=== PATIENT | female | born 1965 | race Caucasian/White ===

== ENCOUNTER 2020-02-21 14:05 | Emergency (ER) | payer OTHER, MEDICAID, SELFPAY ==
[2020-02-21] VITALS (9 sets, daily range): BP systolic 139–197; BP diastolic 72–94; PULSE 70–85; RESP 12–18; TEMP 36.9; O2SAT 94–99; BMI 30.9
--- NOTE | 2020-02-21 15:58 | DI.US.S_ITS ---
PROCEDURE: US ABDOMEN LIMITED INDICATIONS: RUQ PAIN TECHNIQUE: Real-time scanning was performed of the abdominal and retroperitoneal organs, with image documentation. COMPARISON: [facility], CT, ABDOMEN/PELVIS WITH CONTRAST, 12/06/2012, 22:55. FINDINGS: Liver: There is diffusely increased echogenicity throughout the liver with attenuation of the deeper structures. Gallbladder: The gallbladder appears normal without gallstones. Gallbladder wall is normal in thickness. Biliary ducts: Intrahepatic bile ducts are non-dilated. Extrahepatic bile duct caliber measures 6 mm. Normal is 6-7 mm or less in diameter, or 10 mm or less post-cholecystectomy. Pancreas: Visualized portions of the pancreas are sonographically normal. IMPRESSION: Increased hepatic echogenicity noted possibly related to hepatic steatosis but other sources of hepatocellular disease cannot be excluded. Recommend clinical correlation. No sonographic signs of cholelithiasis or acute cholecystitis. Dictated by: Saw Early M.D. on 02/21/2020 at 16:34 Approved by: Saw Early M.D. on 02/21/2020 at 16:36
--- NOTE | 2020-02-21 15:58 | DI.RAD.S_ITS ---
PROCEDURE: XR ACUTE ABDOMEN SERIES INDICATIONS: abd pain TECHNIQUE: One view chest and two views of the abdomen were acquired. COMPARISON: None. FINDINGS: Surgical changes and devices: None. Chest: Lungs are clear. Heart size is normal. No pleural effusions. No pneumoperitoneum. Abdomen: Bowel gas pattern is normal. No suspicious calcifications. Visualized solid organ contours appear normal. Bones: No suspicious bony lesions. IMPRESSION: Nonspecific bowel gas pattern, no sign of intestinal obstruction or perforation. No lung base pneumonia found. Dictated by: Oskar Payton M.D. on 02/21/2020 at 16:27 Approved by: Oskar Payton M.D. on 02/21/2020 at 16:28
[2020-02-21 17:19] LABS: Add Manual Diff / Slide Review NO; Basophils Absolute Auto 100 /uL (0-100); Basophils Percent Auto 0.8 % (0-2); Eosinophils Absolute Auto 100 /uL (0-450); Eosinophils Percent Auto 1.1 % (2-4); Hematocrit 42.2 % (36-46); Hemoglobin 14.3 g/dL (12.0-16.0); Lymphocytes Absolute Auto 2900 /uL (1100-4500); Lymphocytes Percent Auto 35.3 % (25-40); Mean Corpuscular Hemoglobin 29.8 PG (26-34); Mean Corpuscular Volume 87.9 fL (80-100); Monocytes Absolute Auto 400 /uL (0-900); Monocytes Percent Auto 4.7 % (3-14); Neutrophils Absolute Auto 4800 /uL (1500-7000); Neutrophils Percent Auto 58.1 % (50-75); Platelet Count 348 X10^3/uL (150-400); Red Blood Cell Count 4.81 X10^6/uL (4.0-5.2); Red Cell Distribution Width 12.5 % (11.6-14.8); White Blood Cell Count 8.2 X10^3/uL (4.5-11.0)
[2020-02-21] MEDS: PANTOPRAZOLE 40 MG VIAL IV (17:23)
[2020-02-21] MEDS: ONDANSETRON 4 MG/2 ML INJ IV (17:23)
[2020-02-21 17:30] LABS: Prothrombin Time 11.9 SECONDS (10.1-12.7)
[2020-02-21 17:32] LABS: Alanine Aminotransferase 97 IU/L (<35); Albumin 4.9 g/dL (3.5-5.0); Albumin Globulin Ratio 1.4 (1.0-2.8); Alkaline Phosphatase 98 U/L (38-126); Amylase 96 U/L (30-110); Aspartate Aminotransferase 48 IU/L (14-36); BUN Creatinine Ratio 20.6 (6-22); Bilirubin Total 0.6 mg/dL (0.2-1.3); Blood Urea Nitrogen 13 mg/dL (7-17); Calcium 9.4 mg/dL (8.4-10.2); Carbon Dioxide 25 mmol/L (22-32); Chloride 104 mmol/L (98-107); Creatine Kinase 48 U/L (30-135); Estimated Glomerular Filt Rate > 60.0 mL/min (>60); Globulin 3.4 g/dL (1.7-4.1); Glucose 97 mg/dL (70-100); HEMOLYSIS < 15 (0-50); Lipase 86 U/L (23-300); PTT Partial Thromboplastin Tim 35 SECONDS (26.4-36.2); Sodium 138 mmol/L (137-145); Total Protein 8.3 g/dL (6.3-8.2)
[2020-02-21 17:44] LABS: Troponin I < 0.012 ng/mL (0.01-0.034)
[2020-02-21] MEDS: MAG HYDROX/ALUMINUM/SIMETH SUS 20 ML, LIDOCAINE VISCOUS 2% 15 ML PO (17:47)
--- NOTE | 2020-02-21 19:29 | ED_ITS ---
HPI - Abdominal Pain <RAFIA Rust - Last Filed: 02/21/20 19:35> General Chief Complaint: Abdominal Pain Stated Complaint: upper abdominal burning,changes Time Seen by Provider: 02/21/20 15:15 Source: patient Mode of arrival: Ambulatory Limitations: no limitations History of Present Illness HPI narrative: The patient is a 55-year-old female nonsmoker with history of abdominal pain who presents with a chief complaint of epigastric abdominal pain. She states it she feels like it is burning, is been going off and on for the past several months. She has seen formerly [facility] prior, had a colonoscopy a few weeks ago. She states she is scheduled for an EGD in 2 weeks. She denies t aking any medications for this. She denies any fevers. She denies any nausea or vomiting. She does note loose stools, but states she has a history there of. She states the pain is nonradiating, no specific alleviating or exacerbating factors, though it is noted that her pain comes and goes. It is sporadic. She denies any chest pain or shortness of breath. The patient states it stays in her epigastric area. She denies any exposure to known coronavirus patients. She does note that she used to be an alcoholic, is known to have some elevated LFTs. She states she is not drinking at this point time. She went to [place] today, states she was there for 3 hours but did not see anybody or leave the waiting room so she left and came here. Related Data Home Medications Medication Instructions Recorded Confirmed CRANBERRY EXTRACT (Cranberry) 405 mg PO PRN #0 11/30/12 02/21/20 [PHYTOESTROGEN CREAM] BID #0 11/30/12 Previous Rx's Medication Instructions Recorded pantoprazole [Protonix] 40 mg PO DAILY #20 tab 02/21/20 Allergies Allergy/AdvReac Type Severity Reaction Status Date / Time MORPHINE Allergy Unknown ITCHING Uncoded 02/21/20 14:31 Review of Systems <RAFIA Rust - Last Filed: 02/21/20 19:35> Review of Systems Narrative: GENERAL: Denies chills, fatigue, malaise, fever, sweats. HEENT: Denies sinus pain, ear pain, sore throat, difficulty swallowing, dizziness. RESPIRATORY: Denies dyspnea, cough, wheezing, hemoptysis, sputum. CARDIOVASCULAR: Denies chest pain, palpitations, orthopnea, edema, GASTROINTESTINAL: See HPI : Denies dysuria, frequency, incontinence, hematuria, urinary retention. MUSCULOSKELETAL: denies weakness, joint pain, or bony pain SKIN: Denies rash, skin lesions, or other NEUROLOGIC: Denies weakness, headache, numbness, change in speech, confusion, seizures, incoordination. PSYCHIATRIC: No concerning psychosocial issues. 12 point review of systems is negative except for those stated above Patient History <CARMEN Rust - Last Filed: 02/21/20 19:35> Social History Smoking Status: Never smoker Smoking Status: Never smoker Substance Use Type: marijuana Exam <CARMEN Rust - Last Filed: 02/21/20 19:35> Narrative Exam Narrative: GENERAL: This is a well-nourished, well-developed patient, in no acute distress HEAD: Atraumatic. Normocephalic. No temporal or scalp tenderness. EYES: Pupils equal round and reactive. Extraocular motions intact. No scleral icterus. No injection or drainage. ENT: Nose without bleeding, purulent drainage or septal hematoma. Throat without erythema, tonsillar hypertrophy or exudate. Uvula midline. Airway patent. NECK: Trachea midline. No JVD or lymphadenopathy. Supple, nontender, no meningeal signs. CARDIOVASCULAR: Regular rate and rhythm RESPIRATORY: Clear to auscultation. Breath sounds equal bilaterally. No wheezes, rales, or rhonchi. GASTROINTESTINAL: Abdomen soft, diffusely tender to palpation, nondistended. No hepato-splenomegaly, or palpable masses. No guarding. Active bowel sounds all 4 quadrants. EXTREMITIES: No clubbing, cyanosis, or edema. No joint tenderness, effusion, or edema noted. BACK: Nontender without deformity or crepitance. No flank tenderness. NEURO: AOx3. SKIN: No rash or erythema on visible skin Initial Vital Signs Initial Vital Signs: Vital Signs Temperature 98.5 F 02/21/20 14:24 Pulse Rate 85 02/21/20 14:24 Respiratory Rate 16 02/21/20 14:24 Blood Pressure 182/82 H 02/21/20 14:24 Pulse Oximetry 95 02/21/20 14:24 <Aldo Hernandez MD - Last Filed: 02/27/20 08:21> Initial Vital Signs Initial Vital Signs: Vital Signs Temperature 98.5 F 02/21/20 14:24 Pulse Rate 85 02/21/20 14:24 Respiratory Rate 16 02/21/20 14:24 Blood Pressure 182/82 H 02/21/20 14:24 Pulse Oximetry 95 02/21/20 14:24 Scores <RAFIA Rust - Last Filed: 02/21/20 19:35> GCS Oswald coma scale eye opening: Spontaneous Herald coma scale verbal response: Orientated Oswald coma scale motor response: Obey commands Oswald coma scale total score: 15 Course <RAFIA Rust - Last Filed: 02/21/20 19:35> Orders Ordered: Discontinued Medications Al Hydrox/Mg Hydrox/Simethicone 20 ml/ Lidocaine HCl 15 ml 0 ml PO NOW ONE Stop: 02/21/20 17:40 Last Admin: 02/21/20 17:47 Dose: 35 ml Documented by: JABIER Ondansetron HCl (Zofran) 4 mg IV NOW ONE Stop: 02/21/20 15:59 Last Admin: 02/21/20 17:23 Dose: 4 mg Documented by: JABIER Pantoprazole Sodium (Protonix) 40 mg IV NOW ONE Stop: 02/21/20 15:59 Last Admin: 02/21/20 17:23 Dose: 40 mg Documented by: JABIER Vital Signs Vital signs: Vital Signs - 8 hr 02/21/20 14:24 02/21/20 16:54 02/21/20 16:56 Temperature 98.5 F Pulse Rate 85 71 77 Respiratory Rate 16 16 18 Blood Pressure 182/82 H 197/77 H Pulse Oximetry 95 97 96 02/21/20 17:00 02/21/20 17:01 02/21/20 17:30 Temperature Pulse Rate 78 77 76 Respiratory Rate 12 18 14 Blood Pressure 155/76 H 150/72 H Pulse Oximetry 97 96 94 02/21/20 18:00 02/21/20 18:01 02/21/20 19:15 Temperature Pulse Rate 73 72 70 Respiratory Rate 17 17 14 Blood Pressure 139/94 H 144/77 H Pulse Oximetry 97 96 99 <Aldo Hernandez MD - Last Filed: 02/27/20 08:21> Orders Ordered: Discontinued Medications Al Hydrox/Mg Hydrox/Simethicone 20 ml/ Lidocaine HCl 15 ml 0 ml PO NOW ONE Stop: 02/21/20 17:40 Last Admin: 02/21/20 17:47 Dose: 35 ml Documented by: JABIER Ondansetron HCl (Zofran) 4 mg IV NOW ONE Stop: 02/21/20 15:59 Last Admin: 02/21/20 17:23 Dose: 4 mg Documented by: JABIER Pantoprazole Sodium (Protonix) 40 mg IV NOW ONE Stop: 02/21/20 15:59 Last Admin: 02/21/20 17:23 Dose: 40 mg Documented by: JABIER Vital Signs Vital signs: Vital Signs - 8 hr 02/21/20 14:24 02/21/20 16:54 02/21/20 16:56 Temperature 98.5 F Pulse Rate 85 71 77 Respiratory Rate 16 16 18 Blood Pressure 182/82 H 197/77 H Pulse Oximetry 95 97 96 02/21/20 17:00 02/21/20 17:01 02/21/20 17:30 Temperature Pulse Rate 78 77 76 Respiratory Rate 12 18 14 Blood Pressure 155/76 H 150/72 H Pulse Oximetry 97 96 94 02/21/20 18:00 02/21/20 18:01 02/21/20 19:15 Temperature Pulse Rate 73 72 70 Respiratory Rate 17 17 14 Blood Pressure 139/94 H 144/77 H Pulse Oximetry 97 96 99 MDM - Abdominal Pain <BARRINGTON Rust-BC - Last Filed: 02/21/20 19:35> Lab Data Result diagrams: 02/21/20 17:05 02/21/20 17:05 Labs: Lab Results 02/21/20 02/21/20 02/21/20 Range/Units 17:05 17:05 17:05 WBC 8.2 (4.5-11.0) X10^3/uL RBC 4.81 (4.0-5.2) X10^6/uL Hgb 14.3 (12.0-16.0) g/dL Hct 42.2 (36-46) % MCV 87.9 (80-100) fL MCH 29.8 (26-34) PG MCHC 34.0 (30-36) % RDW 12.5 (11.6-14.8) % Plt Count 348 (150-400) X10^3/uL Neut % (Auto) 58.1 (50-75) % Lymph % (Auto) 35.3 (25-40) % Mcintosh % (Auto) 4.7 (3-14) % Eos % (Auto) 1.1 L (2-4) % Baso % (Auto) 0.8 (0-2) % Neut # (Auto) 4800 (2581-8407) /uL Lymph # (Auto) 2900 (9116-6044) /uL Mcintosh # (Auto) 400 (0-900) /uL Eos # (Auto) 100 (0-450) /uL Baso # (Auto) 100 (0-100) /uL PT 11.9 (10.1-12.7) SECONDS INR 1.0 (0.9-1.3) APTT 35 (26.4-36.2) SECONDS Sodium 138 (137-145) mmol/L Potassium 4.0 (3.4-5.1) mmol/L Chloride 104 (98-107) mmol/L Carbon Dioxide 25 (22-32) mmol/L BUN 13 (7-17) mg/dL Creatinine 0.63 (0.52-1.04) mg/dL Estimated GFR > 60.0 (>60) mL/min BUN/Creatinine Ratio 20.6 (6-22) Glucose 97 (70-100) mg/dL Calcium 9.4 (8.4-10.2) mg/dL Total Bilirubin 0.6 (0.2-1.3) mg/dL AST 48 H (14-36) IU/L ALT 97 H (<35) IU/L Alkaline Phosphatase 98 (38-126) U/L Total Creatine Kinase (30-135) U/L CK-MB (CK-2) CK-MB (CK-2) Rel Index Troponin I (0.01-0.034) ng/mL Total Protein 8.3 H (6.3-8.2) g/dL Albumin 4.9 (3.5-5.0) g/dL Globulin 3.4 (1.7-4.1) g/dL Albumin/Globulin Ratio 1.4 (1.0-2.8) Amylase 96 (30-110) U/L Lipase 86 (23-300) U/L 08/14/20 Range/Units 17:05 WBC (4.5-11.0) X10^3/uL RBC (4.0-5.2) X10^6/uL Hgb (12.0-16.0) g/dL Hct (36-46) % MCV (80-100) fL MCH (26-34) PG MCHC (30-36) % RDW (11.6-14.8) % Plt Count (150-400) X10^3/uL Neut % (Auto) (50-75) % Lymph % (Auto) (25-40) % Mcintosh % (Auto) (3-14) % Eos % (Auto) (2-4) % Baso % (Auto) (0-2) % Neut # (Auto) (0049-7920) /uL Lymph # (Auto) (3134-8123) /uL Mcintosh # (Auto) (0-900) /uL Eos # (Auto) (0-450) /uL Baso # (Auto) (0-100) /uL PT (10.1-12.7) SECONDS INR (0.9-1.3) APTT (26.4-36.2) SECONDS Sodium (137-145) mmol/L Potassium (3.4-5.1) mmol/L Chloride (98-107) mmol/L Carbon Dioxide (22-32) mmol/L BUN (7-17) mg/dL Creatinine (0.52-1.04) mg/dL Estimated GFR (>60) mL/min BUN/Creatinine Ratio (6-22) Glucose (70-100) mg/dL Calcium (8.4-10.2) mg/dL Total Bilirubin (0.2-1.3) mg/dL AST (14-36) IU/L ALT (<35) IU/L Alkaline Phosphatase (38-126) U/L Total Creatine Kinase 48 (30-135) U/L CK-MB (CK-2) TNP CK-MB (CK-2) Rel Index TNP Troponin I < 0.012 (0.01-0.034) ng/mL Total Protein (6.3-8.2) g/dL Albumin (3.5-5.0) g/dL Globulin (1.7-4.1) g/dL Albumin/Globulin Ratio (1.0-2.8) Amylase (30-110) U/L Lipase (23-300) U/L Point of care testing: Urine Dip Bedside Urine Glucose Negative Bedside Urine Bilirubin - Negative Bedside Urine Ketone +/- 5 Urine Specific [place] 1.030 Bedside Urine Occult Blood - Negative Bedside Urine pH 5.5 Bedside Urine Protein - Negative Bedside Urine Urobilinogen - Negative Bedside Urine Nitrite - Negative Bedside Urine Leukocytes - Negative Esterase Imaging Data Chest x-ray: Radiologist's Impression: [address] [address] XRay Report Signed Patient: Liudmila Green [facility]#: [id number] : 1965Acct:[id number] Age/Sex: 55 / FDate of Service: 02/21/20 Loc: ED Accession Number: [id number] Procedure: XR acute abdomen series Ordering Provider: Teresa Alejandra PROCEDURE: XR ACUTE ABDOMEN SERIES INDICATIONS: abd pain TECHNIQUE: One view chest and two views of the abdomen were acquired. COMPARISON: None. FINDINGS: Surgical changes and devices: None. Chest: Lungs are clear. Heart size is normal. No pleural effusions. No pneumoperitoneum. Abdomen: Bowel gas pattern is normal. No suspicious calcifications. Visualized solid organ contours appear normal. Bones: No suspicious bony lesions. IMPRESSION: Nonspecific bowel gas pattern, no sign of intestinal obstruction or perforation. No lung base pneumonia found. Dictated by: Oskar Payton M.D. on 02/21/2020 at 16:27 Approved by: Oskar Payton M.D. on 02/21/2020 at 16:28 US - abdomen: Radiologist's Impression: [address] [address] Ultrasound Report Signed Patient: Liudmila Green [facility]#: [id number] : 1965Acct:[id number] Age/Sex: 55 / FDate of Service: 02/21/20 Loc: ED Accession Number: [id number] Procedure: US abdomen limited Ordering Provider: Teresa Aljeandra PROCEDURE: US ABDOMEN LIMITED INDICATIONS: RUQ PAIN TECHNIQUE: Real-time scanning was performed of the abdominal and retroperitoneal organs, with image documentation. COMPARISON: [facility], CT, ABDOMEN/PELVIS WITH CONTRAST, 12/06/2012, 22:55. FINDINGS: Liver: There is diffusely increased echogenicity throughout the liver with attenuation of the deeper structures. Gallbladder: The gallbladder appears normal without gallstones. Gallbladder wall is normal in thickness. Biliary ducts: Intrahepatic bile ducts are non-dilated. Extrahepatic bile duct caliber measures 6 mm. Normal is 6-7 mm or less in diameter, or 10 mm or less post-cholecystectomy. Pancreas: Visualized portions of the pancreas are sonographically normal. IMPRESSION: Increased hepatic echogenicity noted possibly related to hepatic steatosis but other sources of hepatocellular disease cannot be excluded. Recommend clinical correlation. No sonographic signs of cholelithiasis or acute cholecystitis. Dictated by: Saw Early M.D. on 02/21/2020 at 16:34 Approved by: Saw Early M.D. on 02/21/2020 at 16:36 ECG Data Attestation: I personally reviewed and interpreted this ECG as follows: Interpretation: Sinus rhythm. Ventricular rate 79. P.r. interval 160. QRS 78. viewed by Dr Hernandez MDM Narrative Medical decision making narrative: The patient is a 55-year-old female who presents with a chief complaint of abdominal pain that has been ongoing for the past several weeks to months. EKG has no acute findings, troponin is negative helping rule out any acute cardiac disease related to her epigastric pain. Patient does have pain to right upper quadrant palpation, so did obtain an ultrasound to rule out any acute cholecystitis. Otherwise her labs are very reassuring, no leukocytosis, no fever, no vomiting help to rule out acute appen dicitis. The patient does feel improved after the above-stated therapies, particularly the Protonix. I did discuss at length reduce acid, fat in her diet, voiding acidic foods deep fried fatty foods etcetera. Did place the patient on daily Protonix at this point time. Encouraged to follow up with primary care provider as well as her GI provider. I do feel as though she would benefit from the scope that is scheduled. Patient has no questions or concerns upon discharge and states understanding return precautions as well as follow-up care. She has been afebrile, in no apparent distress on her cell phone throughout her stay in the emergency department. <Aldo Hernandez MD - Last Filed: 02/27/20 08:21> Lab Data Labs: Lab Results 02/21/20 02/21/20 02/21/20 Range/Units 17:05 17:05 17:05 WBC 8.2 (4.5-11.0) X10^3/uL RBC 4.81 (4.0-5.2) X10^6/uL Hgb 14.3 (12.0-16.0) g/dL Hct 42.2 (36-46) % MCV 87.9 (80-100) fL MCH 29.8 (26-34) PG MCHC 34.0 (30-36) % RDW 12.5 (11.6-14.8) % Plt Count 348 (150-400) X10^3/uL Neut % (Auto) 58.1 (50-75) % Lymph % (Auto) 35.3 (25-40) % Mcintosh % (Auto) 4.7 (3-14) % Eos % (Auto) 1.1 L (2-4) % Baso % (Auto) 0.8 (0-2) % Neut # (Auto) 4800 (3238-9690) /uL Lymph # (Auto) 2900 (8753-3570) /uL Mcintosh # (Auto) 400 (0-900) /uL Eos # (Auto) 100 (0-450) /uL Baso # (Auto) 100 (0-100) /uL PT 11.9 (10.1-12.7) SECONDS INR 1.0 (0.9-1.3) APTT 35 (26.4-36.2) SECONDS Sodium 138 (137-145) mmol/L Potassium 4.0 (3.4-5.1) mmol/L Chloride 104 (98-107) mmol/L Carbon Dioxide 25 (22-32) mmol/L BUN 13 (7-17) mg/dL Creatinine 0.63 (0.52-1.04) mg/dL Estimated GFR > 60.0 (>60) mL/min BUN/Creatinine Ratio 20.6 (6-22) Glucose 97 (70-100) mg/dL Calcium 9.4 (8.4-10.2) mg/dL Total Bilirubin 0.6 (0.2-1.3) mg/dL AST 48 H (14-36) IU/L ALT 97 H (<35) IU/L Alkaline Phosphatase 98 (38-126) U/L Total Creatine Kinase (30-135) U/L CK-MB (CK-2) CK-MB (CK-2) Rel Index Troponin I (0.01-0.034) ng/mL Total Protein 8.3 H (6.3-8.2) g/dL Albumin 4.9 (3.5-5.0) g/dL Globulin 3.4 (1.7-4.1) g/dL Albumin/Globulin Ratio 1.4 (1.0-2.8) Amylase 96 (30-110) U/L Lipase 86 (23-300) U/L 02/21/20 Range/Units 17:05 WBC (4.5-11.0) X10^3/uL RBC (4.0-5.2) X10^6/uL Hgb (12.0-16.0) g/dL Hct (36-46) % MCV (80-100) fL MCH (26-34) PG MCHC (30-36) % RDW (11.6-14.8) % Plt Count (150-400) X10^3/uL Neut % (Auto) (50-75) % Lymph % (Auto) (25-40) % Mcintosh % (Auto) (3-14) % Eos % (Auto) (2-4) % Baso % (Auto) (0-2) % Neut # (Auto) (4774-6915) /uL Lymph # (Auto) (3948-8000) /uL Mcintosh # (Auto) (0-900) /uL Eos # (Auto) (0-450) /uL Baso # (Auto) (0-100) /uL PT (10.1-12.7) SECONDS INR (0.9-1.3) APTT (26.4-36.2) SECONDS Sodium (137-145) mmol/L Potassium (3.4-5.1) mmol/L Chloride (98-107) mmol/L Carbon Dioxide (22-32) mmol/L BUN (7-17) mg/dL Creatinine (0.52-1.04) mg/dL Estimated GFR (>60) mL/min BUN/Creatinine Ratio (6-22) Glucose (70-100) mg/dL Calcium (8.4-10.2) mg/dL Total Bilirubin (0.2-1.3) mg/dL AST (14-36) IU/L ALT (<35) IU/L Alkaline Phosphatase (38-126) U/L Total Creatine Kinase 48 (30-135) U/L CK-MB (CK-2) TNP CK-MB (CK-2) Rel Index TNP Troponin I < 0.012 (0.01-0.034) ng/mL Total Protein (6.3-8.2) g/dL Albumin (3.5-5.0) g/dL Globulin (1.7-4.1) g/dL Albumin/Globulin Ratio (1.0-2.8) Amylase (30-110) U/L Lipase (23-300) U/L Point of care testing: Urine Dip Bedside Urine Glucose Negative Bedside Urine Bilirubin - Negative Bedside Urine Ketone +/- 5 Urine Specific [place] 1.030 Bedside Urine Occult Blood - Negative Bedside Urine pH 5.5 Bedside Urine Protein - Negative Bedside Urine Urobilinogen - Negative Bedside Urine Nitrite - Negative Bedside Urine Leukocytes - Negative Esterase Discharge Plan Departure Patient Disposition: Home Clinical Impression: Abdominal pain Qualifiers: Abdominal location: epigastric Qualified Code(s): R10.13 - Epigastric pain Discharge Date/Time: 02/21/20 19:20 Instructions: DI for Abdominal Pain-Adult, GERD Diet Activity Restrictions/Additional Instructions: Thank you for trusting us with your care today. Your imaging and labs came back grossly normal. I sent a prescription of Protonix to [facility] in [facility] in [place]. Please be sure to eat a low acid diet, avoid spicy foods, deep fried fatty foods acidic foods etcetera Please follow-up with primary care provider. I have given you contact information the [facility] [employer] resource [employer]. They can help you identify a PCP. 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 Please come back to emergency department for any acute concerns such as chest pain, shortness of breath, inability keep down food or fluids etcetera Prescriptions: New pantoprazole [Protonix] 40 mg tablet,delayed release (DR/EC) 40 mg PO DAILY Qty: 20 RF: 0 No Action CRANBERRY EXTRACT (Cranberry) 405 mg PO PRN Qty: 0 RF: 0 [PHYTOESTROGEN CREAM] BID Qty: 0 RF: 0 Referrals: [facility] [Outside] Aldo Todd MD [Primary Care Provider] -
== END 2020-02-21 19:20 | disposition home or self-care (01) ==
PROVIDERS: Emergency Provider Nurse Practitioner Family; PCP Specialist
DX: R10.13 Epigastric pain (principal)
CPT/HCPCS: 36415; 74022; 76705; 80053; 81003; 82150; 82550; 83690; 84484; 85025; 85610; 85730; 93005; 96374; 96375; 99284; C9113; J2405

== ENCOUNTER 2020-09-10 18:53 | Emergency (ER) | payer OTHER, MEDICAID, SELFPAY ==
--- NOTE | 2020-09-10 18:57 | ED.GENADULT ---
HPI - General Adult General Chief complaint: Urogenital-Female Stated complaint: states urinary infection going to kidneys Time Seen by Provider: 09/10/20 18:57 History of Present Illness HPI narrative: 55-year-old woman with a history of reflux and recurrent urinary tract infections presents with increasing suprapubic left lower quadrant and epigastric pain. Symptoms started approximately a week and half ago, she was seen at [facility] and diagnosed with a urinary tract infection treated with Cipro. She feels that she got a little bit better but did not completely resolve. Two days ago she had an upper endoscopy that had been previously scheduled to further evaluate her reflux. She has not heard any specific findings are follow-up regarding that. She notes that today she is having increasing left lower quadrant pain, chills general malaise and over the last few hours increasing dysuria and frequency. She describes no vaginal discharge. She notes that she has not been sexually active for a number of years and is not concerned with ST eyes. She describes no specific fevers, chest pain, cough, vomiting. She notes that she did have a small amount of nonbloody diarrhea today. No orthopnea and no exertional dyspnea. Related Data Home Medications Medication Instructions Recorded Confirmed CRANBERRY EXTRACT (Cranberry) 405 mg PO PRN #0 11/30/12 02/21/20 [PHYTOESTROGEN CREAM] BID #0 11/30/12 Previous Rx's Medication Instructions Recorded pantoprazole [Protonix] 40 mg PO DAILY #20 tab 02/21/20 cephalexin 500 mg PO TID #15 cap 09/10/20 Allergies Allergy/AdvReac Type Severity Reaction Status Date / Time MORPHINE Allergy Unknown ITCHING Uncoded 02/21/20 14:31 Review of Systems Review of Systems ROS Unobtainable: All systems reviewed & are unremarkable except as noted in HPI and below Patient History Medical History (Updated 09/10/20 @ 20:31 by Alysha Mata MD) Acid reflux Alcohol use disorder Recurrent UTI Surgical History (Updated 09/10/20 @ 20:12 by Alysha Mata MD) H/O: hysterectomy Social History Smoking Status: Never smoker Smoking Status: Never smoker Substance Use Type: marijuana Exam Narrative Exam Narrative: General: Healthy appearing, in no acute distress. Able to give a complete and coherent history. Well-nourished well-developed HEENT: Moist mucous membranes, normal sclera with reactive pupils, Neck: supple. 1 cm irregular lesion with slight irritation no right lower neck consistent with likely squamous cell carcinoma Respiratory: Lungs are clear to auscultation, no wheezing no rales no rhonchi. Full and symmetrical air movement Cardiac: Regular rate and rhythm no murmurs no bruits Abdomen: Soft, slight tenderness in the epigastrium radiating to the upper quadrants with significant tenderness in the left lower quadrant mild tenderness over the suprapubic area. No flank pain. Good bowel tones, no rebound or guarding. Skin: Warm and dry, no rashes Neurologic: Grossly neurologically intact with no obvious asymmetries or abnormalities Extremities: No trauma, well perfused Psych: Cooperative, appropriate insight and affect Initial Vital Signs Initial Vital Signs: Vital Signs Temperature 98.4 F 09/10/20 19:00 Pulse Rate 84 09/10/20 19:00 Respiratory Rate 18 09/10/20 19:00 Blood Pressure 186/97 H 09/10/20 19:00 Pulse Oximetry 95 09/10/20 19:00 Course Orders Ordered: ED Orders 09/10/20 19:05 Urine Culture Stat Urine Microscopic Stat 09/10/20 19:40 Complete Blood Count AUTO DIFF Stat Comprehensive Metabolic Panel Stat Lipase Stat Discontinued Medications Sodium Chloride (Normal Saline 0.9%) 1,000 mls @ 1,000 mls/hr IV BOLUS ONE Stop: 09/10/20 20:21 Last Infusion: 09/10/20 21:00 Dose: 0 mls/hr Documented by: Admin: 09/10/20 19:41 Dose: 1,000 mls/hr Documented by: AMADOR Ceftriaxone Sodium/Dextrose (Rocephin) 1 gm in 50 mls @ 100 mls/hr IV NOW ONE Stop: 09/10/20 20:53 Last Infusion: 09/10/20 21:10 Dose: 0 mls/hr Documented by: Admin: 09/10/20 20:31 Dose: 100 mls/hr Documented by: AMADOR Ketorolac Tromethamine (Ketorolac 60 Mg/2 Ml Vial) 15 mg IV NOW ONE Stop: 09/10/20 19:23 Last Admin: 09/10/20 19:42 Dose: 15 mg Documented by: AMADOR Vital Signs Vital signs: Vital Signs - 8 hr 09/10/20 19:00 09/10/20 21:12 Temperature 98.4 F 98.1 F Pulse Rate 84 72 Respiratory Rate 18 18 Blood Pressure 186/97 H 162/78 H Pulse Oximetry 95 97 Medical Decision Making Lab Data Lab results reviewed: Yes I reviewed the patient's lab results. Lab results narrative: Labs from [facility] indicate a UTI with E coli sensitive to multiple antibiotics including capsule, ceftriaxone, Cipro, nitrofurantoin -resistant to Bactrim, ampicillin and intermediately sensitive to amp/sulbactam. Result diagrams: 09/10/20 19:40 09/10/20 19:40 Labs: Lab Results 09/10/20 09/10/20 09/10/20 Range/Units 19:05 19:40 19:40 WBC 7.9 (4.5-11.0) X10^3/uL RBC 4.56 (4.0-5.2) X10^6/uL Hgb 13.6 (12.0-16.0) g/dL Hct 39.9 (36-46) % MCV 87.5 (80-100) fL MCH 29.8 (26-34) PG MCHC 34.1 (30-36) % RDW 12.6 (11.6-14.8) % Plt Count 305 (150-400) X10^3/uL Neut % (Auto) 47.3 L (50-75) % Lymph % (Auto) 42.4 H (25-40) % [place] % (Auto) 6.6 (3-14) % Eos % (Auto) 3.0 (2-4) % Baso % (Auto) 0.7 (0-2) % Neut # (Auto) 3700 (1853-2905) /uL Lymph # (Auto) 3400 (0293-0238) /uL [place] # (Auto) 500 (0-900) /uL Eos # (Auto) 200 (0-450) /uL Baso # (Auto) 100 (0-100) /uL Sodium 137 (137-145) mmol/L Potassium 3.9 (3.4-5.1) mmol/L Chloride 104 (98-107) mmol/L Carbon Dioxide 29 (22-32) mmol/L BUN 14 (7-17) mg/dL Creatinine 0.62 (0.52-1.04) mg/dL Estimated GFR > 60.0 (>60) mL/min BUN/Creatinine Ratio 22.6 H (6-22) Glucose 101 H (70-100) mg/dL Calcium 9.4 (8.4-10.2) mg/dL Total Bilirubin 0.4 (0.2-1.3) mg/dL AST 88 H (14-36) IU/L ALT 129 H (<35) IU/L Alkaline Phosphatase 88 (38-126) U/L Total Protein 7.7 (6.3-8.2) g/dL Albumin 4.6 (3.5-5.0) g/dL Globulin 3.1 (1.7-4.1) g/dL Albumin/Globulin Ratio 1.5 (1.0-2.8) Lipase 100 (23-300) U/L Urine RBC None seen (0-5/HPF) Urine WBC 5-10/hpf H (0-5/HPF) Ur Squamous Epith Cells 0-1 /hpf (0-5/HPF) Urine Bacteria Occasional (0-1) (None) Ur Culture Indicated? Specimen cultured Urine Dip Bedside Urine Glucose Negative Bedside Urine Bilirubin - Negative Bedside Urine Ketone - Negative Urine Specific [place] 1.010 Bedside Urine Occult Blood - Negative Bedside Urine pH 6.0 Bedside Urine Protein - Negative Bedside Urine Urobilinogen - Negative Bedside Urine Nitrite - Negative Bedside Urine Leukocytes +/- 15 Esterase Point of care testing: Urine Dip Bedside Urine Glucose Negative Bedside Urine Bilirubin - Negative Bedside Urine Ketone - Negative Urine Specific [place] 1.010 Bedside Urine Occult Blood - Negative Bedside Urine pH 6.0 Bedside Urine Protein - Negative Bedside Urine Urobilinogen - Negative Bedside Urine Nitrite - Negative Bedside Urine Leukocytes +/- 15 Esterase [facility] Narrative Medical decision making narrative: 55-year-old woman with mild abdominal discomfort increasing dysuria and some developing left flank pain. No fevers. Labs do not indicate any evidence of sepsis. She was seen August 11 at [facility] for similar complaints within normal workup and CT scan at that time. Follow-up to that visit included an upper endoscopy done 48 hours ago. She was seen again at [facility] on August 31 was diagnosed with a UTI and culture grew out E coli and she was started on seemingly appropriate antibiotics. She presents again today with recurrent UTI symptoms. Labs are reassuring with no evidence of sepsis. Mildly elevated AST and ALT. She is given a dose of ceftriaxone in the emergency department and will be discharged home with Keflex and instructed to follow-up with her primary care physician. There is no evidence of pyelonephritis, kidney stones, diverticulitis, pelvic abscess. Discharge Plan Departure Patient Disposition: Home Clinical Impression: Skin cancer Urinary tract infection Qualifiers: Urinary tract infection type: acute cystitis Hematuria presence: without hematuria Qualified Code(s): N30.00 - Acute cystitis without hematuria Instructions: DI for Urinary Tract Infection (UTI) Activity Restrictions/Additional Instructions: Thank you for coming in today I did not find any evidence of a kidney infection, diverticulitis or other overwhelming infection. With a CT scan that was done in early August of this year there was no suggestion of kidney stones so that is far less likely. Your urine culture from August 31 is growing out E coli that is not sensitive to Bactrim. That may be part of the reason that you did not improved completely. In the emergency room today your given fluid and IV ceftriaxone, and antibiotic. Get a have you finish 5 additional days of cephalexin, and antibiotic that should easily treat the urinary tract infection that was cultured from August 31. We did repeat the culture today and if we need to change antibiotics again we will contact you. I am strongly suspicious that you have a skin cancer developing on the lower right side of your neck. I have given you information follow-up with Dr. Ana Paula Clark for consultation and probable biopsy/excision. If you feel that you are getting worse, please feel free to return to the emergency department Prescriptions: New cephalexin 500 mg capsule 500 mg PO TID Qty: 15 RF: 0 No Action CRANBERRY EXTRACT (Cranberry) 405 mg PO PRN Qty: 0 RF: 0 [PHYTOESTROGEN CREAM] BID Qty: 0 RF: 0 pantoprazole [Protonix] 40 mg tablet,delayed release (DR/EC) 40 mg PO DAILY Qty: 20 RF: 0 Referrals: Ana Paula Clark MD [Physician] - Aldo Todd MD [Primary Care Provider] -
[2020-09-10 19:00] VITALS: BP 186/97; PULSE 84; RESP 18; TEMP 36.9; O2SAT 95; BMI 30.7
[2020-09-10 19:18] LABS: RBC Urine None Seen (0-5/HPF)
[2020-09-10 19:26] LABS: Bacteria Urine Occasional (0-1); Culture Indicated Urine Specimen Cultured; Squamous Epithelial Cell Urine 0-1 /HPF (0-5/HPF); WBC Urine 5-10/HPF (0-5/HPF)
[2020-09-10] MEDS: SODIUM CHLORIDE 0.9% 1,000 ML 1000 ML IV (19:41)
[2020-09-10] MEDS: KETOROLAC 60 MG/2 ML VIAL 15 MG IV (19:42)
[2020-09-10 19:49] LABS: Add Manual Diff / Slide Review NO; Basophils Absolute Auto 100 /uL (0-100); Basophils Percent Auto 0.7 % (0-2); Eosinophils Absolute Auto 200 /uL (0-450); Hematocrit 39.9 % (36-46); Hemoglobin 13.6 g/dL (12.0-16.0); Lymphocytes Absolute Auto 3400 /uL (1100-4500); Lymphocytes Percent Auto 42.4 % (25-40); Mean Corpuscular HGB Conc 34.1 % (30-36); Mean Corpuscular Hemoglobin 29.8 PG (26-34); Mean Corpuscular Volume 87.5 fL (80-100); Monocytes Absolute Auto 500 /uL (0-900); Monocytes Percent Auto 6.6 % (3-14); Neutrophils Absolute Auto 3700 /uL (1500-7000); Neutrophils Percent Auto 47.3 % (50-75); Platelet Count 305 X10^3/uL (150-400); Red Blood Cell Count 4.56 X10^6/uL (4.0-5.2); Red Cell Distribution Width 12.6 % (11.6-14.8); White Blood Cell Count 7.9 X10^3/uL (4.5-11.0)
[2020-09-10 20:02] LABS: Alanine Aminotransferase 129 IU/L (<35); Albumin 4.6 g/dL (3.5-5.0); Albumin Globulin Ratio 1.5 (1.0-2.8); Alkaline Phosphatase 88 U/L (38-126); Aspartate Aminotransferase 88 IU/L (14-36); BUN Creatinine Ratio 22.6 (6-22); Bilirubin Total 0.4 mg/dL (0.2-1.3); Blood Urea Nitrogen 14 mg/dL (7-17); Calcium 9.4 mg/dL (8.4-10.2); Carbon Dioxide 29 mmol/L (22-32); Chloride 104 mmol/L (98-107); Estimated Glomerular Filt Rate > 60.0 mL/min (>60); Globulin 3.1 g/dL (1.7-4.1); Glucose 101 mg/dL (70-100); HEMOLYSIS 26 (0-50); Lipase 100 U/L (23-300); Potassium 3.9 mmol/L (3.4-5.1); Sodium 137 mmol/L (137-145); Total Protein 7.7 g/dL (6.3-8.2)
[2020-09-10] MEDS: CEFTRIAXONE 1 GM/50 ML FROZ.PIGGY IV (20:31)
[2020-09-10 21:12] VITALS: BP 162/78; PULSE 72; RESP 18; TEMP 36.7; O2SAT 97
== END 2020-09-10 21:15 | disposition home or self-care (01) ==
PROVIDERS: Emergency Provider Emergency Medicine; PCP Specialist
DX: N30.00 Acute cystitis without hematuria (principal); C44.90 Unspecified malignant neoplasm of skin, unspecified; R10.13 Epigastric pain
CPT/HCPCS: 36415; 80053; 81003; 81015; 83690; 85025; 87086; 96365; 96375; 99281; 99284; J1885

== ENCOUNTER 2021-08-15 08:36 | Emergency (ER) | payer OTHER, MEDICAID, SELFPAY ==
[2021-08-15 08:40] VITALS: BP 138/84; PULSE 79; RESP 18; TEMP 36.7; O2SAT 96; BMI 27.4
--- NOTE | 2021-08-15 08:59 | ED_ITS ---
HPI - Female Genitourinary General Chief complaint: Urogenital-Female Stated complaint: UTI Time Seen by Provider: 08/15/21 08:39 Source: patient and RN notes reviewed Mode of arrival: Ambulatory Limitations: no limitations History of Present Illness HPI Narrative: This is a 56-year-old female comes emergency department with concern for UTI. Patient states initially she thought she had vaginitis she had a swab at the end of the week for evaluation for this. She has not received those results yet but she has started developed frequency, dysuria and sense of incomplete emptying. Patient has not had any fevers or chills. She has had some nausea but no vomiting. She has had some mild flank pain. She denies any right flank pain. She denies abdominal pain anteriorly. Patient states she has had frequent UTIs in the past. She denies diarrhea constipation. She is currently on gabapentin and a antidepressant for fibromyalgia and states she has long haul COVID symptoms and had bronchitis for about a month. Patient states she has had hysterectomy and unilateral salpingo oophorectomy as well as sinus surgery. She denies other daily medical issues. She does request pretty as well as a prescription for Diflucan as she frequently gets yeast infections after antibiotics. She states her only allergies to morphine. Related Data Home Medications Medication Instructions Recorded Confirmed CRANBERRY EXTRACT (Cranberry) 405 mg PO PRN #0 11/30/12 02/21/20 [PHYTOESTROGEN CREAM] BID #0 11/30/12 Previous Rx's Medication Instructions Recorded pantoprazole 40 mg tablet,delayed 40 mg PO DAILY #20 tab 02/21/20 release (Protonix) cephalexin 500 mg capsule 500 mg PO TID #15 cap 09/10/20 cephalexin 500 mg capsule 500 mg PO BID 7 Days #14 cap 08/15/21 fluconazole 150 mg tablet 150 mg PO Q3D #2 tab 08/15/21 (Diflucan) phenazopyridine 100 mg tablet 100 mg PO TID PRN #6 tab 08/15/21 (Pyridium) Allergies Allergy/AdvReac Type Severity Reaction Status Date / Time MORPHINE Allergy Unknown ITCHING Uncoded 02/21/20 14:31 Review of Systems Review of Systems ROS Unobtainable: All systems reviewed & are unremarkable except as noted in HPI and below Patient History Medical History Acid reflux Alcohol use disorder Recurrent UTI Surgical History H/O: hysterectomy Substance Use Type: marijuana Exam Narrative Exam Narrative: GENERAL: Alert and oriented x three, female in mild distress. HEENT: Head normocephalic, atraumatic, EOMI, pupils reactive, face symmetric, moist mucous membranes NECK: Supple, full range of motion CARDIOVASCULAR: Regular rate and rhythm without murmurs, rubs or gallops. RESPIRATORY: Breath sounds equal bilaterally, no wheezes rales or rhonchi. ABDOMEN: Soft, nontender. Normoactive bowel sounds all 4 quadrants. No guarding or rebound, rigidity, no mass : No CVA tenderness bilaterally. EXTREMITIES: Normal range of motion. Normal gait. NEUROLOGICAL: Cranial nerves II through XII grossly intact. Moving all extremities SKIN: Warm, dry, no petechiae, no rashes or lesions. Initial Vital Signs Initial Vital Signs: Vital Signs Temperature 98.0 F 08/15/21 08:40 Pulse Rate 79 08/15/21 08:40 Respiratory Rate 18 08/15/21 08:40 Blood Pressure 138/84 08/15/21 08:40 Pulse Oximetry 96 08/15/21 08:40 Course Orders Ordered: ED Orders 08/15/21 08:50 Urine Culture Stat Urine Microscopic Stat Discontinued Medications Phenazopyridine HCl (Phenazopyridine 100 Mg Tablet) 100 mg PO NOW ONE Stop: 08/15/21 09:17 Last Admin: 08/15/21 09:27 Dose: 100 mg Documented by: ABELARDO Vital Signs Vital signs: Vital Signs - 8 hr 08/15/21 09:29 Temperature 98.6 F Pulse Rate 80 Respiratory Rate 16 Blood Pressure 135/60 Pulse Oximetry 99 MDM - Female Genitourinary Lab Data Labs: Lab Results 08/15/21 Range/Units 08:50 Urine RBC 0-1/hpf (0-5/HPF) Urine WBC 10-30/hpf H (0-5/HPF) Ur Squamous Epith Cells None seen (0-5/HPF) Urine Bacteria Few (2-10) H (None) Ur Culture Indicated? Specimen cultured Urine Dip Bedside Urine Glucose Negative Bedside Urine Bilirubin - Negative Bedside Urine Ketone - Negative Urine Specific [place] 1.010 Bedside Urine Occult Blood ++ Bedside Urine pH 8.0 Bedside Urine Protein +/- 15 Bedside Urine Urobilinogen 0.2 Bedside Urine Nitrite - Negative Bedside Urine Leukocytes ++ 125 Esterase MDM Narrative Medical decision making narrative: This is a 56-year-old female with UTI like symptoms. She has had a recent vaginal swab and has not received the results but clinically her symptoms are much more consistent with UTI. She does have multiple visits on her [facility] report noted to [facility] Emergency Department since mid June. Urine shows leuks, hematuria but no nitrates. Urine culture sent. Patient started on Keflex, Pyridium with a prescription for Diflucan at patient request she frequently gets yeast infections afterwards. Discharge Plan Departure Patient Disposition: Home Clinical Impression: UTI (urinary tract infection) Instructions: DI for Urinary Tract Infection (UTI) Activity Restrictions/Additional Instructions: Follow-up with your physician if her not having improvement in the next 2-3 days. Take antibiotics until completely gone. You may take Pyridium 1 tablet every 8 hours as needed for bladder discomfort. This medication will make your urine bright orange. Start Diflucan after you have completed her antibiotics, take 1 tablet, weight 1 day and then take 1 tablet. Prescription sent to [facility] in [place]. Please return for fevers, new or worsening abdominal, back or flank pain, persi stent vomiting, inability to urinate, black or bloody stools or other new or concerning symptoms. Prescriptions: New cephalexin 500 mg capsule 500 mg PO BID 7 Days Qty: 14 0RF phenazopyridine [Pyridium] 100 mg tablet 100 mg PO TID PRN (Reason: pain) Qty: 6 0RF fluconazole [Diflucan] 150 mg tablet 150 mg PO Q3D Qty: 2 0RF No Action CRANBERRY EXTRACT (Cranberry) 405 mg PO PRN Qty: 0 0RF [PHYTOESTROGEN CREAM] BID Qty: 0 0RF cephalexin 500 mg capsule 500 mg PO TID Qty: 15 0RF pantoprazole [Protonix] 40 mg tablet,delayed release (DR/EC) 40 mg PO DAILY Qty: 20 0RF
[2021-08-15 09:27] LABS: Bacteria Urine Few (2-10); Culture Indicated Urine Specimen Cultured; RBC Urine 0-1/HPF (0-5/HPF); Squamous Epithelial Cell Urine None Seen (0-5/HPF); WBC Urine 10-30/HPF (0-5/HPF)
[2021-08-15] MEDS: PHENAZOPYRIDINE 100 MG TABLET PO (09:27)
[2021-08-15 09:29] VITALS: BP 135/60; PULSE 80; RESP 16; TEMP 37; O2SAT 99
== END 2021-08-15 09:29 | disposition home or self-care (01) ==
PROVIDERS: Emergency Provider Emergency Medicine
DX: N39.0 Urinary tract infection, site not specified (principal)
CPT/HCPCS: 81003; 81015; 87077; 87086; 87186; 99283

== ENCOUNTER 2021-09-09 16:17 | Emergency (ER) | payer OTHER, MEDICAID, SELFPAY ==
[2021-09-09 16:21] VITALS: BP 149/101; PULSE 96; RESP 14; TEMP 36.6; O2SAT 100; BMI 28.6
--- NOTE | 2021-09-09 18:34 | ED_ITS ---
HPI - General Adult General Chief complaint: Vaginal Bleeding Stated complaint: Lower Left Abd Pain, Vaginal Fluid/Bumps Time Seen by Provider: 09/09/21 17:53 Source: patient Mode of arrival: Ambulatory History of Present Illness HPI narrative: 56-year-old female who is here for evaluation of vaginal discharge, feel like she has bumps in her vagina, bleeding and lower abdominal discomfort. Patient has had a total hysterectomy to include her cervix. This was done several years ago. She does use intravaginal estrogen cream. Earlier this week she used a generic version of the estrogen cream. She thinks maybe she is having a reacti on to this. She contacted her primary doctor and saw her primary doctor today. She did a self swab of her vaginal region for ?vaginosis ?. She has not received any results of this. She states that after she did this mom she started have some spotting. She left the doctor's office. She then noticed she was having some clear discharge. She put her fingers in her vagina and felt that there were bumps. She stated that the primary doctor did not do a pelvic exam and she wanted someone to evaluate her for potential infection. Related Data Home Medications Medication Instructions Recorded Confirmed CRANBERRY EXTRACT (Cranberry) 405 mg PO PRN #0 11/30/12 02/21/20 [PHYTOESTROGEN CREAM] BID #0 11/30/12 Previous Rx's Medication Instructions Recorded pantoprazole 40 mg tablet,delayed 40 mg PO DAILY #20 tab 02/21/20 release (Protonix) cephalexin 500 mg capsule 500 mg PO TID #15 cap 09/10/20 fluconazole 150 mg tablet 150 mg PO Q3D #2 tab 08/15/21 (Diflucan) phenazopyridine 100 mg tablet 100 mg PO TID PRN #6 tab 08/15/21 (Pyridium) metronidazole 500 mg tablet 500 mg PO BID 7 Days #14 tab 09/09/21 Allergies Allergy/AdvReac Type Severity Reaction Status Date / Time morphine Allergy Verified 09/09/21 16:20 Review of Systems Constitutional Constitutional: Denies fever(s) Cardiovascular Cardiovascular: Denies chest pain and Denies dyspnea Respiratory Respiratory: Denies dyspnea Gastrointestinal Gastrointestinal: Reports as per HPI and Reports system reviewed and no additional complaints, except as documented Genitourinary Genitourinary: Reports system reviewed and no additional complaints, except as documented and Reports as per HPI Hematologic/Lymphatic On Anticoagulants: No Patient History Medical History Acid reflux Alcohol use disorder Recurrent UTI Surgical History H/O: hysterectomy Social History Smoking Status: Never smoker Smoking Status: Never smoker alcohol intake frequency: holidays/special occasions only Substance Use Type: marijuana Exam Initial Vital Signs Initial Vital Signs: Vital Signs Temperature 97.8 F 09/09/21 16:21 Pulse Rate 96 H 09/09/21 16:21 Respiratory Rate 14 09/09/21 16:21 Blood Pressure 149/101 H 09/09/21 16:21 Pulse Oximetry 100 09/09/21 16:21 HENMT Head: normal to inspection and normocephalic Resp Effort & Inspection: normal respiratory effort Cardio Rate: regular rate GI Inspection: normal to inspection Palpation: soft, No firm and No tender General: bimanual renal exam normal bilaterally External Female Exam: normal external appearance Speculum Exam - Vagina: normal appearance of the vagina, not erythematous, no foreign bodies, no lacerations, no lesions, No vaginal bleeding, no masses and no swelling Speculum Exam - Cervix: absent OB/External & Speculum: no foreign bodies and No vaginal bleeding Skin General: no rashes or lesions noted Neuro General: patient alert, patient awake, patient oriented x3 and moves all extremities Extrem General: normal to inspection and capillary refill normal Psych Appearance: grossly normal and well kempt Course Orders Ordered: ED Orders 09/09/21 18:32 YOSELIN Prep Stat Wet Prep Tric BV Rasheeda Stat Discontinued Medications Metronidazole (Metronidazole 500 Mg Tablet) 500 mg PO NOW ONE Stop: 09/09/21 19:47 Last Admin: 09/09/21 19:57 Dose: 500 mg Documented by: KAYOTEM Vital Signs Vital signs: Vital Signs - 8 hr 09/09/21 20:10 Pulse Rate 71 Blood Pressure 128/95 H Pulse Oximetry 97 Medical Decision Making MDM Narrative Medical decision making narrative: Patient is a very benign exam. The pelvic exam is relatively benign. There was some clear discharge. Cultures do show clue cells consistent with bacterial vaginosis. Patient states she has had this in the past. She was given a dose of Flagyl and we will send her home with a remainder of the course. Reassured her that there was no other indication of any infection. She is going to continue to use the estrogen cream as directed. I feel that we can hold on any radiologic studies for now. She was given return precautions and follow-up instructions. She expressed understanding and agreement. Discharge Plan Departure Patient Disposition: Home Clinical Impression: Bacterial vaginosis Instructions: DI for Bacterial Vaginosis Activity Restrictions/Additional Instructions: Take all of the medications as directed. Contact your primary doctor for a follow-up. Return to the emergency department for any new or worsening symptoms. Prescriptions: New metronidazole 500 mg tablet 500 mg PO BID 7 Days Qty: 14 0RF No Action CRANBERRY EXTRACT (Cranberry) 405 mg PO PRN Qty: 0 0RF [PHYTOESTROGEN CREAM] BID Qty: 0 0RF cephalexin 500 mg capsule 500 mg PO TID Qty: 15 0RF pantoprazole [Protonix] 40 mg tablet,delayed release (DR/EC) 40 mg PO DAILY Qty: 20 0RF phenazopyridine [Pyridium] 100 mg tablet 100 mg PO TID PRN (Reason: pain) Qty: 6 0RF fluconazole [Diflucan] 150 mg tablet 150 mg PO Q3D Qty: 2 0RF
[2021-09-09] MEDS: metroNIDAZOLE 500 MG TABLET PO (19:57)
[2021-09-09 20:10] VITALS: BP 128/95; PULSE 71; O2SAT 97
== END 2021-09-09 20:12 | disposition home or self-care (01) ==
PROVIDERS: Emergency Provider Emergency Medicine
DX: N76.0 Acute vaginitis (principal)
CPT/HCPCS: 87210; 87220; 99283

== ENCOUNTER 2021-10-15 15:40 | Emergency (ER) | payer OTHER, MEDICAID, SELFPAY ==
[2021-10-15 15:54] VITALS: BP 159/83; PULSE 84; RESP 16; TEMP 36.6; O2SAT 97; BMI 27.1
--- NOTE | 2021-10-15 16:20 | ED.FEMALEGU ---
HPI - Female Genitourinary <Cameron Peña PA-C - Last Filed: 10/15/21 17:30> General Chief complaint: Urogenital-Female Stated complaint: UTI Time Seen by Provider: 10/15/21 15:50 Source: patient Mode of arrival: Family Vehicle History of Present Illness HPI Narrative: This is a 48-year-old female presents emergency department due to UTI like symptoms. Symptoms include dysuria, and urinary frequency. States she has very mild lower back pain but denies any fevers, chills, abdominal pain, or any other systemic symptoms. Also denies vaginal discharge or lesions. Patient states that this is her ?6 UTI in last 2 months?. Related Data Home Medications Medication Instructions Recorded Confirmed CRANBERRY EXTRACT (Cranberry) 405 mg PO PRN #0 11/30/12 02/21/20 [PHYTOESTROGEN CREAM] BID #0 11/30/12 Previous Rx's Medication Instructions Recorded pantoprazole 40 mg tablet,delayed 40 mg PO DAILY #20 tab 02/21/20 release (Protonix) cephalexin 500 mg capsule 500 mg PO TID #15 cap 09/10/20 fluconazole 150 mg tablet 150 mg PO Q3D #2 tab 08/15/21 (Diflucan) phenazopyridine 100 mg tablet 100 mg PO TID PRN #6 tab 08/15/21 (Pyridium) nitrofurantoin 100 mg PO BID 5 Days #10 cap 10/15/21 monohydrate/macrocrystals 100 mg capsule (Macrobid) nitrofurantoin 100 mg PO Q12H 5 Days #10 cap 10/15/21 monohydrate/macrocrystals 100 mg capsule (Macrobid) Allergies Allergy/AdvReac Type Severity Reaction Status Date / Time morphine AdvReac ITCHING Verified 10/15/21 15:54 Review of Systems <Cameron Peña PA-C - Last Filed: 10/15/21 17:30> Review of Systems Narrative: See HPI Patient History <Cameron Peña PA-C - Last Filed: 10/15/21 17:30> Medical History Acid reflux Alcohol use disorder Recurrent UTI Surgical History H/O: hysterectomy alcohol intake frequency: holidays/special occasions only Substance Use Type: marijuana Exam <LORRIE Nagel Last Filed: 10/15/21 17:30> Initial Vital Signs Initial Vital Signs: Vital Signs Temperature 97.8 F 10/15/21 15:54 Pulse Rate 84 10/15/21 15:54 Respiratory Rate 16 10/15/21 15:54 Blood Pressure 159/83 H 10/15/21 15:54 Pulse Oximetry 97 10/15/21 15:54 Const General: cooperative and healthy appearing GI Palpation: soft and other Other: No abdominal tenderness palpation Back/Spine/Pelvis Other: No CVA tenderness bilaterally <DO Abbi Ellison Last Filed: 10/16/21 08:08> Initial Vital Signs Initial Vital Signs: Vital Signs Temperature 97.8 F 10/15/21 15:54 Pulse Rate 84 10/15/21 15:54 Respiratory Rate 16 10/15/21 15:54 Blood Pressure 159/83 H 10/15/21 15:54 Pulse Oximetry 97 10/15/21 15:54 Course <LORRIE Nagel Last Filed: 10/15/21 17:30> Orders Ordered: ED Orders 10/15/21 16:00 Urine Culture Stat Vital Signs Vital signs: Vital Signs - 8 hr 10/15/21 15:54 10/15/21 16:54 Temperature 97.8 F Pulse Rate 84 72 Respiratory Rate 16 16 Blood Pressure 159/83 H 138/70 Pulse Oximetry 97 100 <Bethany Cavazos DO - Last Filed: 10/16/21 08:08> Orders Ordered: ED Orders 10/15/21 16:00 Urine Culture Stat Vital Signs Vital signs: Vital Signs - 8 hr 10/15/21 15:54 10/15/21 16:54 Temperature 97.8 F Pulse Rate 84 72 Respiratory Rate 16 16 Blood Pressure 159/83 H 138/70 Pulse Oximetry 97 100 MDM - Female Genitourinary <LORRIE Nagel Last Filed: 10/15/21 17:30> Lab Data Labs: Urine Dip Bedside Urine Glucose Negative Bedside Urine Bilirubin - Negative Bedside Urine Ketone - Negative Urine Specific [place] 1.010 Bedside Urine Occult Blood - Negative Bedside Urine pH 6.5 Bedside Urine Protein - Negative Bedside Urine Urobilinogen - Negative Bedside Urine Nitrite - Negative Bedside Urine Leukocytes - Negative Esterase MDM Narrative Medical decision making narrative: This is a 56-year-old female presenting to the emergency department due to UTI like symptoms. Urinalysis showed no acute findings but due to symptoms and being very consistent with UTI will treat empirically. Urine culture ordered. Recommended patient speak with her primary care physician for referral to Urology for further investigation of these recurrent UTIs and she states this is her 6th 1 in the last couple of months. Patient did not present any fevers or systemic symptoms or significant CVA tenderness concerning for pyelonephritis. <Bethany Cavazos, DO - Last Filed: 10/16/21 08:08> Lab Data Labs: Urine Dip Bedside Urine Glucose Negative Bedside Urine Bilirubin - Negative Bedside Urine Ketone - Negative Urine Specific [place] 1.010 Bedside Urine Occult Blood - Negative Bedside Urine pH 6.5 Bedside Urine Protein - Negative Bedside Urine Urobilinogen - Negative Bedside Urine Nitrite - Negative Bedside Urine Leukocytes - Negative Esterase Discharge Plan Departure Patient Disposition: Home Clinical Impression: Recurrent UTI Instructions: DI for Urinary Tract Infection (UTI) Activity Restrictions/Additional Instructions: Thank you for coming to the [facility] Emergency Department today. The previous culture taken by [facility] shows that the Macrobid I will prescribe you should work for your recurrent UTIs. I would like you to follow-up with your internal medicine physician on Monday who will be able to refer you to urology for further evaluation as they are able to further investigate the cause of your frequent UTIs. Please take the antibiotics as prescribed I suspect that should help with symptoms. I hope you feel better soon. Prescriptions: New nitrofurantoin monohyd/m-cryst [Macrobid] 100 mg capsule 100 mg PO BID 5 Days Qty: 10 0RF Rx Instructions: must administer with a meal/food nitrofurantoin monohyd/m-cryst [Macrobid] 100 mg capsule 100 mg PO Q12H 5 Days Qty: 10 0RF Rx Instructions: must administer with a meal/food No Action CRANBERRY EXTRACT (Cranberry) 405 mg PO PRN Qty: 0 0RF [PHYTOESTROGEN CREAM] BID Qty: 0 0RF cephalexin 500 mg capsule 500 mg PO TID Qty: 15 0RF pantoprazole [Protonix] 40 mg tablet,delayed release (DR/EC) 40 mg PO DAILY Qty: 20 0RF phenazopyridine [Pyridium] 100 mg tablet 100 mg PO TID PRN (Reason: pain) Qty: 6 0RF fluconazole [Diflucan] 150 mg tablet 150 mg PO Q3D Qty: 2 0RF <Bethany Cavazos DO - Last Filed: 10/16/21 08:08> Cosign ED Attending Leslee Attestation: I was immediately available in the department for consultation. Documentation has been reviewed. I agree with assessment and plan.
[2021-10-15 16:54] VITALS: BP 138/70; PULSE 72; RESP 16; O2SAT 100
== END 2021-10-15 16:57 | disposition home or self-care (01) ==
PROVIDERS: Emergency Provider Physician Assistant Medical
DX: N39.0 Urinary tract infection, site not specified (principal)
CPT/HCPCS: 81003; 87077; 87086; 87186; 99282

== ENCOUNTER 2021-12-29 15:40 | Emergency (ER) | payer OTHER, MEDICAID, SELFPAY ==
[2021-12-29 15:42] VITALS: BP 133/83; PULSE 86; RESP 20; TEMP 37.1; O2SAT 96
--- NOTE | 2021-12-29 21:08 | ED_ITS ---
HPI - General Chief complaint: Urogenital-Female Stated complaint: UTI Source: patient Mode of arrival: Ambulatory Related Data Home Medications Medication Instructions Recorded Confirmed CRANBERRY EXTRACT (Cranberry) 405 mg PO PRN ##0 11/30/12 02/21/20 [PHYTOESTROGEN CREAM] BID ##0 11/30/12 Previous Rx's Medication Instructions Recorded pantoprazole 40 mg tablet,delayed 40 mg PO DAILY #20 tabs 02/21/20 release (Protonix) cephalexin 500 mg capsule 500 mg PO TID #15 caps 09/10/20 fluconazole 150 mg tablet 150 mg PO Q3D 2 doses #2 tabs 08/15/21 (Diflucan) phenazopyridine 100 mg tablet 100 mg PO TID PRN pain 6 doses #6 08/15/21 (Pyridium) tabs Allergies Allergy/AdvReac Type Severity Reaction Status Date / Time morphine AdvReac ITCHING Verified 10/15/21 15:54 Exam Initial Vital Signs Initial Vital Signs: Vital Signs Temperature 98.7 F 12/29/21 15:42 Pulse Rate 86 12/29/21 15:42 Respiratory Rate 20 12/29/21 15:42 Blood Pressure 133/83 12/29/21 15:42 Pulse Oximetry 96 12/29/21 15:42 Oxygen Delivery Method 12/29/21 15:42 Course Vital Signs Vital signs: Vital Signs - 8 hr 12/29/21 15:42 Temperature 98.7 F Pulse Rate 86 Respiratory Rate 20 Blood Pressure 133/83 Pulse Oximetry 96 Oxygen Delivery Method Room Air MDM - OB/Uterine Contractions Lab Data Labs: Urine Dip Bedside Urine Glucose Negative Bedside Urine Bilirubin - Negative Bedside Urine Ketone - Negative Urine Specific [place] 1.005 Bedside Urine Occult Blood - Negative Bedside Urine pH 6.0 Bedside Urine Protein - Negative Bedside Urine Urobilinogen - Negative Bedside Urine Nitrite - Negative Bedside Urine Leukocytes - Negative Esterase Discharge Plan Departure Patient Disposition: Left Without Being Seen Clinical Impression: Patient left without being seen
== END 2021-12-29 18:13 | disposition left against medical advice (07) ==
PROVIDERS: Emergency Provider Emergency Medicine
DX: N39.0 Urinary tract infection, site not specified (principal)
CPT/HCPCS: 81003; 99281

== ENCOUNTER 2022-07-05 12:23 | Emergency (ER) | payer OTHER, MEDICAID, SELFPAY ==
[2022-07-05 12:26] VITALS: BP 109/68; PULSE 87; RESP 15; TEMP 36.3; O2SAT 95; BMI 27.4
== END 2022-07-05 16:02 | disposition left against medical advice (07) ==
PROVIDERS: Emergency Provider Emergency Medicine
DX: R30.0 Dysuria (principal)
CPT/HCPCS: 81003; 99281

== ENCOUNTER 2022-07-28 16:59 | Emergency (ER) | payer MEDICAID, SELFPAY ==
[2022-07-28 17:34] VITALS: BP 158/94; PULSE 85; RESP 15; TEMP 36.3; O2SAT 98; BMI 27.4
[2022-07-28 17:56] LABS: Add Manual Diff / Slide Review NO; Basophils Absolute Auto 100 /uL (0-100); Basophils Percent Auto 0.8 % (0-2); Eosinophils Absolute Auto 100 /uL (0-450); Eosinophils Percent Auto 1.1 % (2-4); Hematocrit 41.8 % (36-46); Hemoglobin 14.2 g/dL (12.0-16.0); Lymphocytes Absolute Auto 3000 /uL (1100-4500); Lymphocytes Percent Auto 40.7 % (25-40); Mean Corpuscular HGB Conc 33.9 % (30-36); Mean Corpuscular Hemoglobin 29.7 PG (26-34); Mean Corpuscular Volume 87.6 fL (80-100); Monocytes Absolute Auto 400 /uL (0-900); Monocytes Percent Auto 5.1 % (3-14); Neutrophils Absolute Auto 3900 /uL (1500-7000); Neutrophils Percent Auto 52.3 % (50-75); Platelet Count 326 X10^3/uL (150-400); Red Blood Cell Count 4.77 X10^6/uL (4.0-5.2); Red Cell Distribution Width 12.9 % (11.6-14.8); White Blood Cell Count 7.5 X10^3/uL (4.5-11.0)
[2022-07-28 18:14] LABS: INR 1.1 (0.9-1.3); Prothrombin Time 12.5 SECONDS (10.1-12.7)
[2022-07-28 18:18] LABS: Alanine Aminotransferase 36 IU/L (<35); Alkaline Phosphatase 84 U/L (38-126); Aspartate Aminotransferase 33 IU/L (14-36); BUN Creatinine Ratio 16.7 (6-22); Bilirubin Total 0.5 mg/dL (0.2-1.3); Blood Urea Nitrogen 12 mg/dL (7-17); Calcium 8.8 mg/dL (8.4-10.2); Carbon Dioxide 24 mmol/L (22-32); Chloride 102 mmol/L (98-107); Estimated Glomerular Filt Rate > 60 mL/min (>60); Glucose 95 mg/dL (70-100); Lipase 96 U/L (23-300); Sodium 138 mmol/L (137-145); Total Protein 8.4 g/dL (6.3-8.2)
--- NOTE | 2022-07-28 19:55 | ED.GENADULT ---
HPI - General Adult General Chief complaint: Abdominal Pain Stated complaint: RT SIDE FROM THROUGH TO BACK Time Seen by Provider: 07/28/22 19:37 Source: patient Mode of arrival: Ambulatory Limitations: no limitations History of Present Illness HPI narrative: Patient is a 57-year-old female who is here for evaluation epigastric and left upper quadrant abdominal tenderness that is radiating to her back. Over the past 3 weeks she completed a 2 week course of Keflex. She states this was prescribed her for urinary tract infection. She then completed 1 week of Diflucan. She states she frequently gets yeast infections after having antibiotics but she is little unsure as to why they gave her 1 week of this medication. After stopping the Diflucan 1 or 2 days later she started to get pain in her upper abdomen. She did have 1 episode of bright red blood with some diarrhea but that was yesterday. She is not had any vomiting. No fevers. Her urinary symptoms have resolved. She has had GI issues in the past since having COVID. Related Data Home Medications Medication Instructions Recorded Confirmed CRANBERRY EXTRACT (Cranberry) 405 mg PO PRN ##0 11/30/12 02/21/20 [PHYTOESTROGEN CREAM] BID ##0 11/30/12 Previous Rx's Medication Instructions Recorded pantoprazole 40 mg tablet,delayed 40 mg PO DAILY #20 tabs 02/21/20 release (Protonix) cephalexin 500 mg capsule 500 mg PO TID #15 caps 09/10/20 fluconazole 150 mg tablet 150 mg PO Q3D 2 doses #2 tabs 08/15/21 (Diflucan) phenazopyridine 100 mg tablet 100 mg PO TID PRN pain 6 doses #6 08/15/21 (Pyridium) tabs sucralfate 100 mg/mL oral 10 ml PO QACHS #400 mL 07/28/22 suspension (Carafate) Allergies Allergy/AdvReac Type Severity Reaction Status Date / Time duloxetine [From Cymbalta] Allergy Verified 07/28/22 17:34 loratadine [From Claritin] Allergy Verified 07/28/22 17:34 morphine AdvReac ITCHING Verified 07/28/22 17:34 Review of Systems Constitutional Constitutional: Reports system reviewed and no additional complaints, except as documented Gastrointestinal Gastrointestinal: Reports system reviewed and no additional complaints, except as documented Genitourinary Genitourinary: Reports system reviewed and no additional complaints, except as documented Integumentary/Breasts Skin/Breast: Reports system reviewed and no additional complaints, except as documented Neurologic Neurologic: Reports system reviewed and no additional complaints, except as documented Patient History Medical History Acid reflux Alcohol use disorder Recurrent UTI Surgical History H/O: hysterectomy Social History Smoking Status: Never smoker Smoking Status: Never smoker alcohol intake frequency: holidays/special occasions only Substance Use Type: marijuana Exam Initial Vital Signs Initial Vital Signs: Vital Signs Temperature 97.3 F L 07/28/22 17:34 Pulse Rate 85 07/28/22 17:34 Respiratory Rate 15 07/28/22 17:34 Blood Pressure 158/94 H 07/28/22 17:34 Pulse Oximetry 98 07/28/22 17:34 Oxygen Delivery Method 07/28/22 17:34 Resp Effort & Inspection: normal respiratory effort Cardio Rate: regular rate GI Inspection: normal to inspection and non-distended Palpation: soft and No firm Back/Spine/Pelvis Back: No CVA tenderness Skin General: no rashes or lesions noted Extrem General: normal to inspection and capillary refill normal Course Orders Ordered: Discontinued Medications Al Hydrox/Mg Hydrox/Simethicone 20 ml/ Lidocaine HCl 15 ml 0 ml PO NOW ONE Stop: 07/28/22 19:56 Last Admin: 07/28/22 20:04 Dose: 35 ml Documented By: HNG Vital Signs Vital signs: Vital Signs - 8 hr 07/28/22 20:11 Temperature 98.7 F Pulse Rate 72 Respiratory Rate 18 Blood Pressure 133/85 Pulse Oximetry 97 Oxygen Delivery Method Room Air Medical Decision Making Differential Diagnosis Differential Diagnosis: Pancreatitis, gallbladder pathology, ulcers, bowel obstruction, pyelo, zost Condition is:: Well Controlled Discussed with:: Patient Medical Records Medical records reviewed: Yes I reviewed the patient's medical records. Lab Data Lab results reviewed: Yes I reviewed the patient's lab results. Result diagrams: 07/28/22 17:45 07/28/22 17:45 Labs: Lab Results 01/19/23 01/19/23 01/19/23 Range/Units 17:45 17:45 17:45 WBC 7.5 (4.5-11.0) X10^3/uL RBC 4.77 (4.0-5.2) X10^6/uL Hgb 14.2 (12.0-16.0) g/dL Hct 41.8 (36-46) % MCV 87.6 (80-100) fL MCH 29.7 (26-34) PG MCHC 33.9 (30-36) % RDW 12.9 (11.6-14.8) % Plt Count 326 (150-400) X10^3/uL Neut % (Auto) 52.3 (50-75) % Lymph % (Auto) 40.7 H (25-40) % [place] % (Auto) 5.1 (3-14) % Eos % (Auto) 1.1 L (2-4) % Baso % (Auto) 0.8 (0-2) % Neut # (Auto) 3900 (6553-0846) /uL Lymph # (Auto) 3000 (3679-5084) /uL [place] # (Auto) 400 (0-900) /uL Eos # (Auto) 100 (0-450) /uL Baso # (Auto) 100 (0-100) /uL PT 12.5 (10.1-12.7) SECONDS INR 1.1 (0.9-1.3) Sodium 138 (137-145) mmol/L Potassium 4.0 (3.4-5.1) mmol/L Chloride 102 (98-107) mmol/L Carbon Dioxide 24 (22-32) mmol/L BUN 12 (7-17) mg/dL Creatinine 0.72 (0.52-1.04) mg/dL Estimated GFR > 60 (>60) mL/min BUN/Creatinine Ratio 16.7 (6-22) Glucose 95 (70-100) mg/dL Calcium 8.8 (8.4-10.2) mg/dL Total Bilirubin 0.5 (0.2-1.3) mg/dL AST 33 (14-36) IU/L ALT 36 H (<35) IU/L Alkaline Phosphatase 84 (38-126) U/L Total Protein 8.4 H (6.3-8.2) g/dL Lipase 96 (23-300) U/L ECG Data Attestation: I personally reviewed and interpreted this ECG as follows: Interpretation: Sinus rhythm Ventricular rate of 81 Normal axis Normal QRS Normal QTC No ST T wave changes MDM Narrative Medical decision making narrative: Patient has had symptoms in the past couple weeks with very unremarkable labs today. Low suspicion for pancreatitis or gallbladder. She is having upper abdominal pain. This all started after spending 3 weeks on different types of medications. I suspect that her symptoms are most likely had gastritis related to this. Based on her exam today who will hold on any radiologic studies for now. Low suspicion for an acute intra-abdominal surgical pathology based on her history and physical exam and labs. Will discharge when a prescription for Carafate and she was given strict return precautions. She expressed understanding and agreement Discharge Plan Departure Patient Disposition: Home Clinical Impression: Abdominal pain Instructions: DI for Abdominal Pain-Adult Activity Restrictions/Additional Instructions: I do recommend that you continue with the probiotics. You can take the Carafate as directed and like we discussed. Contact your primary doctor for a follow-up. Return to the emergency department for any new or worsening symptoms. Prescriptions: New sucralfate [Carafate] 100 mg/mL suspension 10 ml PO QACHS Qty: 400 2RF No Action CRANBERRY EXTRACT (Cranberry) 405 mg PO PRN Qty: 0 [PHYTOESTROGEN CREAM] BID Qty: 0 cephalexin 500 mg capsule 500 mg PO TID Qty: 15 0RF pantoprazole [Protonix] 40 mg tablet,delayed release (DR/EC) 40 mg PO DAILY Qty: 20 0RF phenazopyridine [Pyridium] 100 mg tablet 100 mg PO TID PRN (Reason: pain) Qty: 6 0RF fluconazole [Diflucan] 150 mg tablet 150 mg PO Q3D Qty: 2 0RF Stand Alone Forms: Patient Portal/API
[2022-07-28] MEDS: MAG HYDROX/ALUMINUM/SIMETH SUS 20 ML, LIDOCAINE VISCOUS 2% 15 ML PO (20:04)
[2022-07-28 20:11] VITALS: BP 133/85; PULSE 72; RESP 18; TEMP 37.1; O2SAT 97
[2022-07-29 17:06] LABS: Albumin 4.8 g/dL (3.5-5.0); Albumin Globulin Ratio 1.3 (1.0-2.8); Globulin 3.6 g/dL (1.7-4.1); HEMOLYSIS 23 (0-50)
== END 2022-07-28 20:17 | disposition home or self-care (01) ==
PROVIDERS: Emergency Medicine; Emergency Provider Emergency Medicine
DX: R10.13 Epigastric pain (principal); R10.12 Left upper quadrant pain
CPT/HCPCS: 36415; 80053; 83690; 85025; 85610; 93005; 99283; 99284

== ENCOUNTER 2023-02-01 11:44 | Emergency (ER) | payer MEDICAID, SELFPAY ==
[2023-02-01] VITALS (7 sets, daily range): BP systolic 138–167; BP diastolic 66–99; PULSE 73–80; RESP 15–21; TEMP 36.6; O2SAT 95–98; BMI 25.7
--- NOTE | 2023-02-01 11:57 | DI.RAD.S_ITS ---
PROCEDURE: XR CHEST 1V INDICATIONS: Shortness of breath TECHNIQUE: One view of the chest was acquired. COMPARISON: [facility], CR, XR CHEST 2 VIEWS, 09/07/2022, 11:00. FINDINGS: Surgical changes and devices: None. Lungs and pleura: Lungs are clear. No pleural effusions or pneumothorax. Mediastinum: Mediastinal contours appear normal. Heart size is normal. Bones and chest wall: No suspicious bony lesions. Overlying soft tissues appear unremarkable. IMPRESSION: No acute cardiopulmonary abnormality. Approved by: Saw Early M.D. on 02/01/2023 at 12:47
[2023-02-01 12:23] LABS: Add Manual Diff / Slide Review NO; Basophils Absolute Auto 100 /uL (0-100); Basophils Percent Auto 0.7 % (0-2); Eosinophils Absolute Auto 100 /uL (0-450); Eosinophils Percent Auto 1.4 % (2-4); Hematocrit 39.4 % (36-46); Hemoglobin 13.3 g/dL (12.0-16.0); Lymphocytes Absolute Auto 2800 /uL (1100-4500); Lymphocytes Percent Auto 39.7 % (25-40); Mean Corpuscular HGB Conc 33.9 % (30-36); Mean Corpuscular Hemoglobin 29.7 PG (26-34); Mean Corpuscular Volume 87.7 fL (80-100); Monocytes Absolute Auto 400 /uL (0-900); Monocytes Percent Auto 5.3 % (3-14); Neutrophils Absolute Auto 3800 /uL (1500-7000); Neutrophils Percent Auto 52.9 % (50-75); Platelet Count 323 X10^3/uL (150-400); Prothrombin Time 11.6 SECONDS (10.1-12.7); Red Blood Cell Count 4.49 X10^6/uL (4.0-5.2); Red Cell Distribution Width 12.9 % (11.6-14.8); White Blood Cell Count 7.1 X10^3/uL (4.5-11.0)
[2023-02-01 12:27] LABS: Alanine Aminotransferase 51 IU/L (<35); Albumin 4.6 g/dL (3.5-5.0); Albumin Globulin Ratio 1.4 (1.0-2.8); Alkaline Phosphatase 78 U/L (38-126); Aspartate Aminotransferase 39 IU/L (14-36); BUN Creatinine Ratio 16.1 (6-22); Bilirubin Total 0.5 mg/dL (0.2-1.3); Blood Urea Nitrogen 9 mg/dL (7-17); Calcium 9.1 mg/dL (8.4-10.2); Carbon Dioxide 25 mmol/L (22-32); Chloride 99 mmol/L (98-107); Estimated Glomerular Filt Rate > 60 mL/min (>60); Globulin 3.3 g/dL (1.7-4.1); Glucose 102 mg/dL (70-100); HEMOLYSIS < 15 (0-50); Potassium 4.2 mmol/L (3.4-5.1); Sodium 132 mmol/L (137-145); Total Protein 7.9 g/dL (6.3-8.2)
[2023-02-01 12:39] LABS: NT-proBNP (BNP-Adult 18+) 40 pg/mL (<125); Troponin I < 0.012 ng/mL (0.01-0.034)
[2023-02-01 12:55] LABS: Lactate (Lactic Acid) 0.8 mmol/L (0.7-2.1)
--- NOTE | 2023-02-01 14:45 | ED.GENADULT ---
HPI - General Adult General Chief complaint: Shortness of Breath/Dyspnea Stated complaint: SOB/DIZZY/EXPOSED TO PRIMER Time Seen by Provider: 02/01/23 14:09 Source: patient Mode of arrival: Wheelchair History of Present Illness HPI narrative: Patient has hypersensitivity to chemicals and smells. 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 Patient states she was itching last night. She woke this morning with puffy eyes. She realized that the landlord at her apartment complex had a crayon painter come in to do some priming. She is sensitive to this chemical. Someone had close the windows and moved the fan in the apartment. Cause her symptoms to flare up this morning. She drove out here to [place] for fresh air, while here she had dizziness and shortness of breath. Her puffy eyes are improving. She called her primary care provider and was instructed to come here. Patient feels much better now. No history of heart attack strokes or diabetes. Denies any chest pain. Currently no rash. Related Data Home Medications Medication Instructions Recorded Confirmed CRANBERRY EXTRACT (Cranberry) 405 mg PO PRN ##0 11/30/12 02/21/20 [PHYTOESTROGEN CREAM] BID ##0 11/30/12 Previous Rx's Medication Instructions Recorded pantoprazole 40 mg tablet,delayed 40 mg PO DAILY #20 tabs 02/21/20 release (Protonix) cephalexin 500 mg capsule 500 mg PO TID #15 caps 09/10/20 fluconazole 150 mg tablet 150 mg PO Q3D 2 doses #2 tabs 08/15/21 (Diflucan) phenazopyridine 100 mg tablet 100 mg PO TID PRN pain 6 doses #6 08/15/21 (Pyridium) tabs sucralfate 100 mg/mL oral 10 ml PO QACHS #400 mL 07/28/22 suspension (Carafate) famotidine 20 mg tablet (Pepcid) 20 mg PO BID #10 tabs 02/01/23 methylprednisolone 4 mg tablets in See Rx Instructions PO .COMPLEX 02/01/23 a dose pack (Medrol (Pedro)) #21 ea Allergies Allergy/AdvReac Type Severity Reaction Status Date / Time duloxetine [From Cymbalta] Allergy Verified 02/01/23 11:54 loratadine [From Claritin] Allergy Verified 02/01/23 11:54 morphine AdvReac ITCHING Verified 02/01/23 11:54 Review of Systems Review of Systems Narrative: GENERAL: negative chills, fatigue, malaise, fever, sweats. HEENT: negative sinus pain, ear pain, sore throat, positive periorbital edema RESPIRATORY: Positive dyspnea, positive cough CARDIOVASCULAR: negative chest pain, palpitations GASTROINTESTINAL: negative nausea, vomiting, abdominal pain : negative dysuria, frequency, hematuria MUSCULOSKELETAL: negative muscle or bony pain SKIN: negative rash, skin lesions, positive pruritus NEUROLOGIC: negative weakness, numbness positive dizziness ROS Unobtainable: All systems reviewed & are unremarkable except as noted in HPI and below Patient History Medical History Acid reflux Alcohol use disorder Recurrent UTI Surgical History H/O: hysterectomy Social History Smoking Status: Never smoker Smoking Status: Never smoker alcohol intake frequency: holidays/special occasions only Substance Use Type: marijuana Exam Narrative Exam Narrative: GENERAL: in no distress, not toxic not dyspneic HEAD: Normocephalic. EYES: Pupils equal round there is mild bilateral symmetric periorbital edema ENT: Mucous membranes moist. No intraoral swelling tongue swelling tongue elevation lip swelling NECK: Trachea midline. No stridor CARDIOVASCULAR: Regular rate and rhythm without murmurs RESPIRATORY: Clear to auscultation. Breath sounds equal bilaterally. No wheezes, rales, or rhonchi. No respiratory distress speaking full sentences GASTROINTESTINAL: Abdomen soft, non-tender EXTREMITIES: No gross deformities. BACK: No flank tenderness. NEURO: AOx4. SKIN: Warm and dry, no hives on face or arms PSYCH: Not anxious, is cooperative Initial Vital Signs Initial Vital Signs: Vital Signs Temperature 97.8 F 02/01/23 11:53 Pulse Rate 78 02/01/23 11:53 Respiratory Rate 15 02/01/23 11:53 Blood Pressure 167/99 H 02/01/23 11:53 Pulse Oximetry 97 02/01/23 11:53 Oxygen Delivery Method Room Air 02/01/23 11:53 Course Orders Ordered: Discontinued Medications Famotidine (Famotidine 20 Mg/2 Ml Vial) 20 mg IV NOW WON Last Admin: 02/01/23 15:12 Dose: 20 mg Documented By: JESE Methylprednisolone (Methylprednisolone 125 Mg/2 Ml Vial) 125 mg IV NOW ONE Stop: 02/01/23 14:45 Last Admin: 02/01/23 15:12 Dose: 125 mg Documented By: JESE Vital Signs Vital signs: Vital Signs - 8 hr 02/01/23 11:53 Temperature 97.8 F Pulse Rate 78 Respiratory Rate 15 Blood Pressure 167/99 H Pulse Oximetry 97 Oxygen Delivery Method Room Air Medical Decision Making Lab Data 02/01/23 12:03 02/01/23 12:03 Labs: Lab Results 02/01/23 02/01/23 02/01/23 Range/Units 12:03 12:03 12:03 WBC 7.1 (4.5-11.0) X10^3/uL RBC 4.49 (4.0-5.2) X10^6/uL Hgb 13.3 (12.0-16.0) g/dL Hct 39.4 (36-46) % MCV 87.7 (80-100) fL MCH 29.7 (26-34) PG MCHC 33.9 (30-36) % RDW 12.9 (11.6-14.8) % Plt Count 323 (150-400) X10^3/uL Neut % (Auto) 52.9 (50-75) % Lymph % (Auto) 39.7 (25-40) % Granite % (Auto) 5.3 (3-14) % Eos % (Auto) 1.4 L (2-4) % Baso % (Auto) 0.7 (0-2) % Neut # (Auto) 3800 (4742-1123) /uL Lymph # (Auto) 2800 (2074-0096) /uL Granite # (Auto) 400 (0-900) /uL Eos # (Auto) 100 (0-450) /uL Baso # (Auto) 100 (0-100) /uL PT 11.6 (10.1-12.7) SECONDS INR 1.0 (0.9-1.3) Sodium 132 L (137-145) mmol/L Potassium 4.2 (3.4-5.1) mmol/L Chloride 99 (98-107) mmol/L Carbon Dioxide 25 (22-32) mmol/L BUN 9 (7-17) mg/dL Creatinine 0.56 (0.52-1.04) mg/dL Estimated GFR > 60 (>60) mL/min BUN/Creatinine Ratio 16.1 (6-22) Glucose 102 H (70-100) mg/dL Lactate (0.7-2.1) mmol/L Calcium 9.1 (8.4-10.2) mg/dL Total Bilirubin 0.5 (0.2-1.3) mg/dL AST 39 H (14-36) IU/L ALT 51 H (<35) IU/L Alkaline Phosphatase 78 (38-126) U/L Troponin I < 0.012 (0.01-0.034) ng/mL NT-Pro-B Natriuret Pep 40 (<125) pg/mL Total Protein 7.9 (6.3-8.2) g/dL Albumin 4.6 (3.5-5.0) g/dL Globulin 3.3 (1.7-4.1) g/dL Albumin/Globulin Ratio 1.4 (1.0-2.8) / Range/Units 12:32 WBC (4.5-11.0) X10^3/uL RBC (4.0-5.2) X10^6/uL Hgb (12.0-16.0) g/dL Hct (36-46) % MCV (80-100) fL MCH (26-34) PG MCHC (30-36) % RDW (11.6-14.8) % Plt Count (150-400) X10^3/uL Neut % (Auto) (50-75) % Lymph % (Auto) (25-40) % Granite % (Auto) (3-14) % Eos % (Auto) (2-4) % Baso % (Auto) (0-2) % Neut # (Auto) (4187-3005) /uL Lymph # (Auto) (5747-9072) /uL Granite # (Auto) (0-900) /uL Eos # (Auto) (0-450) /uL Baso # (Auto) (0-100) /uL PT (10.1-12.7) SECONDS INR (0.9-1.3) Sodium (137-145) mmol/L Potassium (3.4-5.1) mmol/L Chloride (98-107) mmol/L Carbon Dioxide (22-32) mmol/L BUN (7-17) mg/dL Creatinine (0.52-1.04) mg/dL Estimated GFR (>60) mL/min BUN/Creatinine Ratio (6-22) Glucose (70-100) mg/dL Lactate 0.8 (0.7-2.1) mmol/L Calcium (8.4-10.2) mg/dL Total Bilirubin (0.2-1.3) mg/dL AST (14-36) IU/L ALT (<35) IU/L Alkaline Phosphatase (38-126) U/L Troponin I (0.01-0.034) ng/mL NT-Pro-B Natriuret Pep (<125) pg/mL Total Protein (6.3-8.2) g/dL Albumin (3.5-5.0) g/dL Globulin (1.7-4.1) g/dL Albumin/Globulin Ratio (1.0-2.8) MDM Narrative Medical decision making narrative: Patient has hypersensitivity to chemicals and smells. 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 Patient states she was itching last night. She woke this morning with puffy eyes. She realized that the landlord at her apartment complex had a crayon painter come in to do some priming. She is sensitive to this chemical. Someone had close the windows and moved the fan in the apartment. Cause her symptoms to flare up this morning. She drove out here to [place] for fresh air, while here she had dizziness and shortness of breath. Her puffy eyes are improving. She called her primary care provider and was instructed to come here. Patient feels much better now. No history of heart attack strokes or diabetes. Denies any chest pain. Currently no rash. After history and exam CBC CMP BNP troponin EKG chest x-ray, patient took home inhaler MDM CC: Cough dyspnea eye swelling Complicating co-morbidities: Chemical sensitivity Data collected from: Patient Medical records reviewed: No recent visit for this complaint Differential considered: Includes but not limited to contact dermatitis, environment allergies, asthma Exam documented above, pertinent findings include: Periorbital edema Lab Test results independently reviewed as above. Pertinent findings: Troponin less than 0.012 Independently reviewed EKG normal EKG normal sinus rhythm rate [address] elevation or depression Imaging studies independently reviewed: Chest x-ray no acute finding Consultations: None required Treatments: Solu-Medrol Pepcid Re-evaluations: Patient feeling much better during course of stay. Does not feel itchy. No shortness of breath. Eye swelling has decreased. Return precautions reviewed with her. Discussion: Appropriate for discharge home. Exam and laboratory studies imaging are reassuring. Patient has high sensitivity to chemicals. She was exposed to unknown substance/primary yesterday. She states these symptoms are not new. Patient feeling much better. Return precautions reviewed with her. She desires discharge home. She will be staying with a friend's house tonight. Diagnosis: Allergic reaction Discharge Plan Departure Patient Disposition: Home Clinical Impression: Allergic reaction to chemical substance Instructions: Allergies, Respiratory (Alternative Therapy) Activity Restrictions/Additional Instructions: See family doctor within a week for re-evaluation. Please do stay away from your home at this time well the chemicals with the paint dries. Please stay with your friend as you have planned. Prescription steroid has been provided for you to continue tomorrow. May take [id number] Benadryl for any itching. Return if worse if any questions or concerns or if any trouble breathing or if any oral swelling or throat tightness Prescriptions: New methylprednisolone [Medrol (Pedro)] 4 mg tablets,dose pack See Rx Instructions .ROUTE .COMPLEX Qty: 21 0RF Rx Instructions: orally per package directions famotidine [Pepcid] 20 mg tablet 20 mg PO BID Qty: 10 0RF No Action CRANBERRY EXTRACT (Cranberry) 405 mg PO PRN Qty: 0 [PHYTOESTROGEN CREAM] BID Qty: 0 cephalexin 500 mg capsule 500 mg PO TID Qty: 15 0RF pantoprazole [Protonix] 40 mg tablet,delayed release (DR/EC) 40 mg PO DAILY Qty: 20 0RF phenazopyridine [Pyridium] 100 mg tablet 100 mg PO TID PRN (Reason: pain) Qty: 6 0RF fluconazole [Diflucan] 150 mg tablet 150 mg PO Q3D Qty: 2 0RF sucralfate [Carafate] 100 mg/mL suspension 10 ml PO QACHS Qty: 400 2RF Referrals: Conor Sy [Primary Care Provider] - Stand Alone Forms: Patient Portal/API
[2023-02-01] MEDS: FAMOTIDINE 20 MG/2 ML VIAL IV (15:12)
[2023-02-01] MEDS: methylPREDNISolone 125 MG/2 ML VIAL IV (15:12)
== END 2023-02-01 15:28 | disposition home or self-care (01) ==
PROVIDERS: Emergency Provider Emergency Medicine; PCP Student in an Organized Health Care Education/Training Program
DX: T65.91XA Toxic effect of unspecified substance, accidental (unintentional), initial encounter (principal); R06.02 Shortness of breath; L29.9 Pruritus, unspecified
CPT/HCPCS: 36415; 71045; 80053; 83605; 83880; 84484; 85025; 85610; 93005; 96374; 96375; 99284; J2930

== ENCOUNTER 2023-02-10 03:20 | Emergency (ER) | payer MEDICAID, SELFPAY ==
[2023-02-10 03:23] VITALS: BP 128/93; PULSE 78; RESP 18; TEMP 36.1; O2SAT 97; BMI 25.4
--- NOTE | 2023-02-10 03:42 | ED.FEMALEGU ---
HPI - Female Genitourinary General Chief complaint: Urogenital-Female Stated complaint: UTI Time Seen by Provider: 02/10/23 03:32 Source: patient Mode of arrival: Ambulatory History of Present Illness HPI Narrative: Patient is a 58-year-old female who presents today with a few hours painful frequent urination. She is is having some abdominal cramping a little bit of nausea and mild left flank pain. No radiation pain. No fever or chills. She has had UTIs in the past this is more uncomfortable than previous. Related Data Home Medications Medication Instructions Recorded Confirmed CRANBERRY EXTRACT (Cranberry) 405 mg PO PRN ##0 11/30/12 02/21/20 [PHYTOESTROGEN CREAM] BID ##0 11/30/12 Previous Rx's Medication Instructions Recorded pantoprazole 40 mg tablet,delayed 40 mg PO DAILY #20 tabs 02/21/20 release (Protonix) cephalexin 500 mg capsule 500 mg PO TID #15 caps 09/10/20 fluconazole 150 mg tablet 150 mg PO Q3D 2 doses #2 tabs 08/15/21 (Diflucan) phenazopyridine 100 mg tablet 100 mg PO TID PRN pain 6 doses #6 08/15/21 (Pyridium) tabs sucralfate 100 mg/mL oral 10 ml PO QACHS #400 mL 07/28/22 suspension (Carafate) famotidine 20 mg tablet (Pepcid) 20 mg PO BID #10 tabs 02/01/23 methylprednisolone 4 mg tablets in See Rx Instructions PO .COMPLEX 02/01/23 a dose pack (Medrol (Pedro)) #21 ea cephalexin 500 mg capsule 500 mg PO BID 5 days #10 caps 02/10/23 phenazopyridine 100 mg tablet 100 mg PO TID PRN pain 6 doses #6 02/10/23 (Pyridium) tabs Allergies Allergy/AdvReac Type Severity Reaction Status Date / Time duloxetine [From Cymbalta] Allergy Verified 02/01/23 11:54 loratadine [From Claritin] Allergy Verified 02/01/23 11:54 morphine AdvReac ITCHING Verified 02/01/23 11:54 Review of Systems Review of Systems ROS Unobtainable: All systems reviewed & are unremarkable except as noted in HPI and below Patient History Medical History Acid reflux Alcohol use disorder Recurrent UTI Surgical History H/O: hysterectomy alcohol intake frequency: holidays/special occasions only Substance Use Type: marijuana Exam Initial Vital Signs Initial Vital Signs: Vital Signs Temperature 97 F L 02/10/23 03:23 Pulse Rate 78 02/10/23 03:23 Respiratory Rate 18 02/10/23 03:23 Blood Pressure 128/93 H 02/10/23 03:23 Pulse Oximetry 97 02/10/23 03:23 Oxygen Delivery Method Room Air 02/10/23 03:23 GENERAL: Alert well-appearing 58-year-old female HEENT: Head atraumatic,EOMI, pupils reactive, face symmetric, moist mucous membranes CARDIOVASCULAR: Regular rate and rhythm without murmurs, rubs or gallops. RESPIRATORY: Breath sounds equal bilaterally, no wheezes rales or rhonchi. ABDOMEN: Soft, nontender. Normoactive bowel sounds all 4 quadrants. No guarding or rebound. : Mild left CVA tenderness EXTREMITIES: Normal range of motion, no clubbing or edema. Neurovascularly intact NEUROLOGICAL: Alert and oriented x4. SKIN: Warm, dry, no laceration, no petechiae, no rashes or lesions. Course Orders Ordered: ED Orders 02/10/23 03:38 Urine Culture Stat 02/10/23 03:41 Urine Microscopic Stat Discontinued Medications Cefazolin Sodium (Cephalexin 250 Mg Cap Prepack) 1 bottle MISC SEEINSTR ONE Stop: 02/10/23 04:00 Ibuprofen (Ibuprofen 400 Mg Tablet) 800 mg PO NOW ONE Stop: 02/10/23 04:00 Phenazopyridine HCl (Phenazopyridine 100 Mg Tablet) 100 mg PO NOW ONE Stop: 02/10/23 04:00 Vital Signs Vital signs: Vital Signs - 8 hr 02/10/23 03:23 Temperature 97 F L Pulse Rate 78 Respiratory Rate 18 Blood Pressure 128/93 H Pulse Oximetry 97 Oxygen Delivery Method Room Air MDM - Female Genitourinary Lab Data Labs: Lab Results 02/10/23 Range/Units 03:38 Urine RBC None seen (0-5/HPF) Urine WBC 30-100/hpf H (0-5/HPF) Ur Squamous Epith Cells 1-5 /hpf (0-5/HPF) Urine Bacteria Moderate (10-30) H (None) Ur Culture Indicated? Specimen cultured Urine Dip Bedside Urine Glucose Negative Bedside Urine Bilirubin - Negative Bedside Urine Ketone - Negative Urine Specific Prospect 1.005 Bedside Urine Occult Blood - Negative Bedside Urine pH 6.0 Bedside Urine Protein - Negative Bedside Urine Urobilinogen - Negative Bedside Urine Nitrite - Negative Bedside Urine Leukocytes + 70 Esterase MDM Narrative Medical decision making narrative: Patient 58-year-old female history of UTIs presenting today with UTI like symptoms. Painful frequent urination. It has been going on for couple hours. Vitals are stable no evidence of sepsis. Mild left flank pain. Symptoms are not consistent with nephrolithiasis. She also does have any hematuria. sHe is given Motrin Pyridium and Keflex in the ED. Discharge Plan Departure Patient Disposition: Home Clinical Impression: UTI (urinary tract infection) Instructions: DI for Urinary Tract Infection (UTI) Activity Restrictions/Additional Instructions: *You have been diagnosed with UTI *What to do: At this time please increase fluids as tolerated. Hopefully you start feeling better in a couple of days *Continue to take medications as directed--> [facility] [place] Pyridium 100 mg every 8 hours if needed for painful urination. Keflex 500 mg twice a day for 5 days *Follow up with your primary care provider in 2-3 days or call [phone] *Return to ER if you should have increasing back pain nausea vomiting not tolerating fluids or any new, worsening or concerning symptoms Prescriptions: New phenazopyridine [Pyridium] 100 mg tablet 100 mg PO TID PRN (Reason: pain) Qty: 6 0RF cephalexin 500 mg capsule 500 mg PO BID 5 Days Qty: 10 0RF No Action CRANBERRY EXTRACT (Cranberry) 405 mg PO PRN Qty: 0 [PHYTOESTROGEN CREAM] BID Qty: 0 cephalexin 500 mg capsule 500 mg PO TID Qty: 15 0RF pantoprazole [Protonix] 40 mg tablet,delayed release (DR/EC) 40 mg PO DAILY Qty: 20 0RF phenazopyridine [Pyridium] 100 mg tablet 100 mg PO TID PRN (Reason: pain) Qty: 6 0RF fluconazole [Diflucan] 150 mg tablet 150 mg PO Q3D Qty: 2 0RF sucralfate [Carafate] 100 mg/mL suspension 10 ml PO QACHS Qty: 400 2RF methylprednisolone [Medrol (Pedro)] 4 mg tablets,dose pack See Rx Instructions .ROUTE .COMPLEX Qty: 21 0RF Rx Instructions: orally per package directions famotidine [Pepcid] 20 mg tablet 20 mg PO BID Qty: 10 0RF Referrals: Conor Sy [Primary Care Provider] - Stand Alone Forms: Patient Portal/API
[2023-02-10 03:52] LABS: RBC Urine None Seen (0-5/HPF)
[2023-02-10 03:53] LABS: Bacteria Urine Moderate (10-30); Culture Indicated Urine Specimen Cultured; Squamous Epithelial Cell Urine 1-5 /HPF (0-5/HPF); WBC Urine 30-100/HPF (0-5/HPF)
[2023-02-10] MEDS: IBUPROFEN 400 MG TABLET 800 MG PO (04:10)
[2023-02-10] MEDS: cephALEXin 250 MG CAP PREPACK 1 BOTTLE MISC (04:10)
[2023-02-10] MEDS: PHENAZOPYRIDINE 100 MG TABLET PO (04:10)
== END 2023-02-10 04:20 | disposition home or self-care (01) ==
PROVIDERS: Emergency Provider Emergency Medicine; PCP Student in an Organized Health Care Education/Training Program
DX: N39.0 Urinary tract infection, site not specified (principal)
CPT/HCPCS: 81003; 81015; 87086; 99283

== ENCOUNTER 2023-04-07 13:37 | Emergency (ER) | payer MEDICAID, SELFPAY ==
[2023-04-07] VITALS (7 sets, daily range): BP systolic 119–161; BP diastolic 58–91; PULSE 81–87; RESP 16–19; TEMP 36.8; O2SAT 96–99; BMI 24.9
--- NOTE | 2023-04-07 13:47 | DI.RAD.S_ITS ---
PROCEDURE: XR CHEST 1V INDICATIONS: chest pain TECHNIQUE: One view of the chest was acquired. COMPARISON: [facility], CR, XR CHEST 1V, 02/01/2023, 12:16. FINDINGS: Surgical changes and devices: None. Lungs and pleura: Lungs are clear. No pleural effusions or pneumothorax. Mediastinum: Mediastinal contours appear normal. Heart size is normal. Bones and chest wall: No suspicious bony lesions. Overlying soft tissues appear unremarkable. IMPRESSION: Portable chest within normal limits for age. Dictated by: Oskar Payton M.D. on 04/07/2023 at 14:24 Approved by: Oskar Payton M.D. on 04/07/2023 at 14:24
[2023-04-07 14:13] LABS: Prothrombin Time 11.8 SECONDS (10.1-12.7)
[2023-04-07 14:15] LABS: PTT Partial Thromboplastin Tim 35 SECONDS (26-36)
--- NOTE | 2023-04-07 14:19 | PC.NURSE ---
Pt reports improvement in chest pain after taking her home albuterol.
[2023-04-07 14:20] LABS: Add Manual Diff / Slide Review NO; Basophils Absolute Auto 100 /uL (0-100); Basophils Percent Auto 1.2 % (0-2); Eosinophils Absolute Auto 100 /uL (0-450); Eosinophils Percent Auto 1.3 % (2-4); Hematocrit 37.4 % (36-46); Hemoglobin 12.8 g/dL (12.0-16.0); Lymphocytes Absolute Auto 2400 /uL (1100-4500); Lymphocytes Percent Auto 30.5 % (25-40); Mean Corpuscular HGB Conc 34.3 % (30-36); Mean Corpuscular Hemoglobin 29.9 PG (26-34); Monocytes Absolute Auto 400 /uL (0-900); Monocytes Percent Auto 5.7 % (3-14); Neutrophils Absolute Auto 4800 /uL (1500-7000); Neutrophils Percent Auto 61.3 % (50-75); Platelet Count 316 X10^3/uL (150-400); Red Cell Distribution Width 12.8 % (11.6-14.8); White Blood Cell Count 7.8 X10^3/uL (4.5-11.0)
[2023-04-07 14:25] LABS: Alanine Aminotransferase 53 IU/L (<35); Albumin 4.3 g/dL (3.5-5.0); Albumin Globulin Ratio 1.5 (1.0-2.8); Alkaline Phosphatase 73 U/L (38-126); Aspartate Aminotransferase 37 IU/L (14-36); BUN Creatinine Ratio 13.2 (6-22); Bilirubin Total 0.4 mg/dL (0.2-1.3); Blood Urea Nitrogen 9 mg/dL (7-17); Calcium 9.1 mg/dL (8.4-10.2); Carbon Dioxide 28 mmol/L (22-32); Chloride 102 mmol/L (98-107); Creatine Kinase 39 U/L (30-135); Estimated Glomerular Filt Rate > 60 mL/min (>60); Globulin 2.9 g/dL (1.7-4.1); Glucose 113 mg/dL (80-110); HEMOLYSIS < 15 (0-50); Lipase 96 U/L (23-300); Magnesium 1.9 mg/dL (1.6-2.3); Potassium 3.5 mmol/L (3.4-5.1); Sodium 136 mmol/L (137-145); Total Protein 7.2 g/dL (6.3-8.2)
[2023-04-07 14:35] LABS: Troponin I < 0.012 ng/mL (0.01-0.034)
[2023-04-07 14:35] LABS: COVID19 -Nasal RAPID Negative (Negative)
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
== END 2023-04-07 15:04 | disposition home or self-care (01) ==
PROVIDERS: Emergency Provider Emergency Medicine; PCP Student in an Organized Health Care Education/Training Program
DX: J45.909 Unspecified asthma, uncomplicated (principal); Z20.822 Contact with and (suspected) exposure to COVID-19
CPT/HCPCS: 36415; 71045; 80053; 82550; 83690; 83735; 84484; 85025; 85610; 85730; 87635; 93005; 99283; 99284; C9803

== ENCOUNTER 2023-04-28 07:05 | Emergency (ER) | payer MEDICAID, SELFPAY ==
[2023-04-28 07:09] VITALS: BP 166/82; PULSE 79; RESP 16; TEMP 36.4; O2SAT 97; BMI 24.3
--- NOTE | 2023-04-28 07:30 | ED_ITS ---
HPI - Skin/Abscess/Foreign Bdy General Chief complaint: Skin/Abscess/Foreign Body Stated complaint: hornet sting lt leg swollen Time Seen by Provider: 04/28/23 07:23 Source: patient Mode of arrival: Ambulatory Limitations: no limitations History of Present Illness HPI narrative: Patient is a 58-year-old female without significant past medical history presenting today with right ankle rash. She reports the exact same spot 1 week ago she was stung by a hornet. She says it has cleared she has not had any redness until this morning. She reports that the last couple of days she has felt great she is had some body aches and fatigue she took a Benadryl 2 nights ago to help get some sleep. Last night she woke up in drenching sweat and had significant pruritus on her right ankle, and this morning she noticed that it was red. She reports it is actually looking better now she reports a burning sensation and significant pruritus. She is afebrile here she is not taken anything. She does have a history of long COVID and fibromyalgia Related Data Home Medications Medication Instructions Recorded Confirmed CRANBERRY EXTRACT (Cranberry) 405 mg PO PRN ##0 11/30/12 02/21/20 [PHYTOESTROGEN CREAM] BID ##0 11/30/12 Previous Rx's Medication Instructions Recorded pantoprazole 40 mg tablet,delayed 40 mg PO DAILY #20 tabs 02/21/20 release (Protonix) cephalexin 500 mg capsule 500 mg PO TID #15 caps 09/10/20 fluconazole 150 mg tablet 150 mg PO Q3D 2 doses #2 tabs 08/15/21 (Diflucan) phenazopyridine 100 mg tablet 100 mg PO TID PRN pain 6 doses #6 08/15/21 (Pyridium) tabs sucralfate 100 mg/mL oral 10 ml PO QACHS #400 mL 07/28/22 suspension (Carafate) famotidine 20 mg tablet (Pepcid) 20 mg PO BID #10 tabs 02/01/23 methylprednisolone 4 mg tablets in See Rx Instructions PO .COMPLEX 02/01/23 a dose pack (Medrol (Pedro)) #21 ea phenazopyridine 100 mg tablet 100 mg PO TID PRN pain 6 doses #6 02/10/23 (Pyridium) tabs Allergies Allergy/AdvReac Type Severity Reaction Status Date / Time duloxetine [From Cymbalta] Allergy Verified 04/28/23 07:15 loratadine [From Claritin] Allergy Verified 04/28/23 07:15 morphine AdvReac ITCHING Verified 04/28/23 07:15 Review of Systems Review of Systems ROS Unobtainable: All systems reviewed & are unremarkable except as noted in HPI and below Patient History Medical History Alcohol use disorder Acid reflux Recurrent UTI Surgical History H/O: hysterectomy Social History Smoking Status: Never smoker Smoking Status: Never smoker alcohol intake frequency: holidays/special occasions only Substance Use Type: marijuana Exam Initial Vital Signs Initial Vital Signs: Vital Signs Temperature 97.5 F L 04/28/23 07:09 Pulse Rate 79 04/28/23 07:09 Respiratory Rate 16 04/28/23 07:09 Blood Pressure 166/82 H 04/28/23 07:09 Pulse Oximetry 97 04/28/23 07:09 Oxygen Delivery Method Room Air 04/28/23 07:09 GENERAL: Well-appearing, well-nourished and in no acute distress. CARDIOVASCULAR: peripheral pulses in tact, cap refill <2 sec RESPIRATORY: No respiratory distress, speaks in full sentences without difficulty EXTREMITIES: Normal range of motion, no clubbing or edema. Neurovascularly intact NEUROLOGICAL: Cranial nerves II through XII grossly intact. Normal gait and spe ech. SKIN: Right lateral ankle flat erythematous cm by 3 cm blanchable erythema no fluctuation Course Vital Signs Vital signs: Vital Signs - 8 hr 04/28/23 07:09 Temperature 97.5 F L Pulse Rate 79 Respiratory Rate 16 Blood Pressure 166/82 H Pulse Oximetry 97 Oxygen Delivery Method Room Air MDM - Skin/Abscess/Foreign Bdy MDM Narrative Medical decision making narrative: Patient healthy 58-year-old female presenting with fatigue and upper respiratory like symptoms for a couple of days she was stung by a hornet a week ago and this morning has some mild erythema. Possible cellulitis versus localized reaction. She reports she had no erythema and no problem immediately after the staying with this morning has some redness. We discussed starting antibiotics versus some topical hydrocortisone cream and Benadryl. At this time she reports that she has many reactions to antibiotics she would like to avoid them. We agree on a topical hydrocortisone cream over the counter monitoring closely and if it worsens and to return to get started on antibiotics. Seems a little on to have a localized reaction a week out. Discharge Plan Departure Patient Disposition: Home Clinical Impression: Accidental bee sting Instructions: DI for Insect Bites and Stings Activity Restrictions/Additional Instructions: *You have been diagnosed with bee sting *What to do: At this time please monitor closely. May try [id number] hydrocortisone cream as directed. If the redness is spreading substantially please return to walk-in clinic or ED for further evaluation *Continue to take medications as directed Hydrocortisone cream *Follow up with your primary care provider in 2-3 days or call [phone] *Return to ER if you should have increasing redness fever pain or any new, worsening or concerning symptoms Prescriptions: No Action CRANBERRY EXTRACT (Cranberry) 405 mg PO PRN Qty: 0 [PHYTOESTROGEN CREAM] BID Qty: 0 cephalexin 500 mg capsule 500 mg PO TID Qty: 15 0RF phenazopyridine [Pyridium] 100 mg tablet 100 mg PO TID PRN (Reason: pain) Qty: 6 0RF pantoprazole [Protonix] 40 mg tablet,delayed release (DR/EC) 40 mg PO DAILY Qty: 20 0RF phenazopyridine [Pyridium] 100 mg tablet 100 mg PO TID PRN (Reason: pain) Qty: 6 0RF fluconazole [Diflucan] 150 mg tablet 150 mg PO Q3D Qty: 2 0RF sucralfate [Carafate] 100 mg/mL suspension 10 ml PO QACHS Qty: 400 2RF methylprednisolone [Medrol (Pedro)] 4 mg tablets,dose pack See Rx Instructions .ROUTE .COMPLEX Qty: 21 0RF Rx Instructions: orally per package directions famotidine [Pepcid] 20 mg tablet 20 mg PO BID Qty: 10 0RF Referrals: Conor Sy [Primary Care Provider] - Stand Alone Forms: Patient Portal/API
== END 2023-04-28 07:42 | disposition home or self-care (01) ==
PROVIDERS: Emergency Provider Emergency Medicine; PCP Student in an Organized Health Care Education/Training Program
DX: T63.441A Toxic effect of venom of bees, accidental (unintentional), initial encounter (principal)
CPT/HCPCS: 99281

== ENCOUNTER 2023-06-26 10:47 | Emergency (ER) | payer MEDICAID, SELFPAY ==
[2023-06-26 10:55] VITALS: BP 163/85; PULSE 81; RESP 20; TEMP 36.8; O2SAT 96; BMI 24.0
--- NOTE | 2023-06-26 11:12 | PC.NURSE ---
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 She feels comfortable with her current living situation and denies needing to talk to a social media marketing specialist today.
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
[2023-06-26 11:24] VITALS: BP 146/91; PULSE 68; RESP 14; O2SAT 97
== END 2023-06-26 11:25 | disposition home or self-care (01) ==
PROVIDERS: Emergency Provider Family Medicine Addiction Medicine; PCP Student in an Organized Health Care Education/Training Program
DX: J06.9 Acute upper respiratory infection, unspecified (principal); R09.1 Pleurisy; R07.89 Other chest pain
CPT/HCPCS: 99281

== ENCOUNTER 2023-08-13 16:47 | Emergency (ER) | payer OTHER, MEDICAID, SELFPAY ==
[2023-08-13] VITALS (13 sets, daily range): BP systolic 136–191; BP diastolic 72–118; PULSE 69–89; RESP 18–22; TEMP 36.9; O2SAT 94–98; BMI 24.0
--- NOTE | 2023-08-13 16:55 | PC.NURSE ---
This RN was paged from admission desk to triage this patient. Upon arrival admission staff stated that patient left.
--- NOTE | 2023-08-13 17:49 | PC.NURSE ---
Triage nurse made it aware to this RN that pt and front registration had a verbal disagreement and pt had left. About 30 minutes later, upstairs coordinator notified RN that pt was found sitting on a bench near L&D unit wanting to make an employee complaint. Pt was brought back to emergency waiting room by security chatman and charge out clerk came out to talk to pt. RN told pt that ED staff is happy to evaluate pt in the emergency room and provide care if she wishes to be seen. Pt states she does want to be seen in emergency room. Pt appears calm and cooperative during interaction. Triage nurse notified and pt triaged. Pt currently waiting in waiting room and appears calm and cooperative.
--- NOTE | 2023-08-13 20:49 | ED.SKABFB ---
HPI - Skin/Abscess/Foreign Bdy General Chief complaint: Skin/Abscess/Foreign Body Stated complaint: MCS/Fibramyalgia , Severe Pain Time Seen by Provider: 08/13/23 19:30 Source: patient Mode of arrival: Ambulatory Limitations: no limitations History of Present Illness HPI narrative: This is a 58-year-old woman complaining of months of vaginal discomfort. Says that she has had multiple vaginal infections in the past. Also is reporting nausea diarrhea abdominal bloating subjective fevers, no dysuria. Presently on a custom estrogen replacement formula. Patient is worried that she might have sepsis. Also has ongoing vaginal burning without discharge. Says that she took Diflucan to treat a yeast infection week or so ago no change in her symptoms. Reports history of multiple chemical sensitivities and being sensitive to many medications. Also reports history of fibromyalgia. Related Data Home Medications Medication Instructions Recorded Confirmed CRANBERRY EXTRACT (Cranberry) 405 mg PO PRN ##0 11/30/12 02/21/20 [PHYTOESTROGEN CREAM] BID ##0 11/30/12 Previous Rx's Medication Instructions Recorded pantoprazole 40 mg tablet,delayed 40 mg PO DAILY #20 tabs 02/21/20 release (Protonix) cephalexin 500 mg capsule 500 mg PO TID #15 caps 09/10/20 fluconazole 150 mg tablet 150 mg PO Q3D 2 doses #2 tabs 08/15/21 (Diflucan) phenazopyridine 100 mg tablet 100 mg PO TID PRN pain 6 doses #6 08/15/21 (Pyridium) tabs sucralfate 100 mg/mL oral 10 ml PO QACHS #400 mL 07/28/22 suspension (Carafate) famotidine 20 mg tablet (Pepcid) 20 mg PO BID #10 tabs 02/01/23 methylprednisolone 4 mg tablets in See Rx Instructions PO .COMPLEX 02/01/23 a dose pack (Medrol (Pedro)) #21 ea phenazopyridine 100 mg tablet 100 mg PO TID PRN pain 6 doses #6 02/10/23 (Pyridium) tabs Allergies Allergy/AdvReac Type Severity Reaction Status Date / Time duloxetine [From Cymbalta] Allergy Verified 04/28/23 07:15 loratadine [From Claritin] Allergy Verified 04/28/23 07:15 morphine AdvReac ITCHING Verified 04/28/23 07:15 Patient History Medical History Alcohol use disorder Acid reflux Recurrent UTI Surgical History H/O: hysterectomy Social History Smoking Status: Former smoker Smoking Status: Former smoker alcohol intake frequency: holidays/special occasions only Substance Use Type: marijuana Exam Narrative Exam Narrative: Alert, no acute distress HEENT: Normocephalic, atraumaitic moist mucus membranes Neck: Supple no midline tenderness Lungs: Clear to ascultaion, no respiratory distress Heart: Regular rhythm and rate no murmur Abdomen: Normal bowel sounds, soft and nontender Extremeties: Full range of motion no deformity Neuro: Alert and oriented, normal speech moves x4 Initial Vital Signs Initial Vital Signs: Vital Signs Temperature 98.5 F 08/13/23 17:31 Pulse Rate 89 08/13/23 17:31 Respiratory Rate 18 08/13/23 17:31 Blood Pressure 167/98 H 08/13/23 17:31 Pulse Oximetry 95 08/13/23 17:31 Oxygen Delivery Method Room Air 08/13/23 17:31 Other: Chaperoned pelvic exam, normal external genitalia, vaginal cuff has a little bit of whitish discharge possibly yeast. Nontender does appear somewhat atrophic Course Orders Ordered: ED Orders 08/13/23 21:09 CBC Auto Diff [Complete Blood Count AUTO DIFF] Stat CMP [Comprehensive Metabolic Panel] Stat Vital Signs Vital signs: Vital Signs - 8 hr 08/13/23 21:08 08/13/23 21:09 08/13/23 21:09 Pulse Rate 70 69 Respiratory Rate 20 Blood Pressure 181/87 H Pulse Oximetry 96 95 Oxygen Delivery Method Room Air 08/13/23 21:30 08/13/23 21:31 08/13/23 21:31 Pulse Rate 74 73 Respiratory Rate Blood Pressure 136/72 Pulse Oximetry 95 95 Oxygen Delivery Method Room Air 08/13/23 22:00 08/13/23 22:07 08/13/23 22:07 Pulse Rate 84 70 Respiratory Rate 22 Blood Pressure 191/100 H 191/100 H Pulse Oximetry 96 94 Oxygen Delivery Method Room Air 08/13/23 22:30 08/13/23 23:00 02/04/24 23:30 Pulse Rate 77 69 76 Respiratory Rate 18 Blood Pressure Pulse Oximetry 97 94 94 Oxygen Delivery Method Room Air Room Air 08/13/23 23:31 08/13/23 23:31 08/13/23 23:45 Pulse Rate 74 70 Respiratory Rate 22 Blood Pressure 143/118 H 160/98 H Pulse Oximetry 94 95 Oxygen Delivery Method Room Air Room Air 08/13/23 23:45 08/13/23 23:45 08/14/23 00:00 Pulse Rate 73 Respiratory Rate Blood Pressure 160/98 H 159/80 H Pulse Oximetry 96 Oxygen Delivery Method 08/14/23 00:00 08/14/23 00:44 Pulse Rate 75 Respiratory Rate Blood Pressure Pulse Oximetry 95 Oxygen Delivery Method Room Air Room Air MDM - Skin/Abscess/Foreign Bdy Lab Data Lab results narrative: CBC with diff is unremarkable, CMP shows mild transaminitis. Urine dip is negative 08/13/23 21:09 08/13/23 21:09 Labs: Lab Results 08/13/23 Range/Units 21:09 WBC 8.0 (4.5-11.0) X10^3/uL RBC 4.48 (4.0-5.2) X10^6/uL Hgb 13.1 (12.0-16.0) g/dL Hct 39.0 (36-46) % MCV 87.2 (80-100) fL MCH 29.3 (26-34) PG MCHC 33.6 (30-36) % RDW 13.3 (11.6-14.8) % Plt Count 342 (150-400) X10^3/uL Neut % (Auto) 55.1 (50-75) % Lymph % (Auto) 36.5 (25-40) % Coal % (Auto) 5.8 (3-14) % Eos % (Auto) 2.0 (2-4) % Baso % (Auto) 0.6 (0-2) % Neut # (Auto) 4400 (0430-0962) /uL Lymph # (Auto) 2900 (6263-2752) /uL Coal # (Auto) 500 (0-900) /uL Eos # (Auto) 200 (0-450) /uL Baso # (Auto) 100 (0-100) /uL Sodium 135 L (137-145) mmol/L Potassium 4.0 (3.4-5.1) mmol/L Chloride 104 (98-107) mmol/L Carbon Dioxide 24 (22-32) mmol/L BUN 17 (7-17) mg/dL Creatinine 0.75 (0.52-1.04) mg/dL Estimated GFR > 60 (>60) mL/min BUN/Creatinine Ratio 22.7 H (6-22) Glucose 98 (80-110) mg/dL Calcium 9.3 (8.4-10.2) mg/dL Total Bilirubin 0.5 (0.2-1.3) mg/dL AST 64 H (14-36) IU/L ALT 111 H (<35) IU/L Alkaline Phosphatase 73 (38-126) U/L Total Protein 7.6 (6.3-8.2) g/dL Albumin 4.3 (3.5-5.0) g/dL Globulin 3.3 (1.7-4.1) g/dL Albumin/Globulin Ratio 1.3 (1.0-2.8) Urine Dip Bedside Urine Glucose Negative Bedside Urine Bilirubin - Negative Bedside Urine Ketone +/- 5 Urine Specific Norton 1.02 Bedside Urine Occult Blood - Negative Bedside Urine pH 6.0 Bedside Urine Protein - Negative Bedside Urine Urobilinogen - Negative Bedside Urine Nitrite - Negative Bedside Urine Leukocytes - Negative Esterase MDM Narrative Medical decision making narrative: 58-year-old female with burning vaginal pain that she has had for months and is seeing a sales support administrator for. She reports having multiple medication sensitivities. Patient is concerned that she is becoming septic. Labs and exam are reassuring and she is advised of this. Given that she is being seen by a sales support administrator and specialist workup is thus far unrevealing, and given that she has multiple medication sensitivities with shared decision-making we elected not to start any new medications. Recommended she follow up with Gynecology. Discharge Plan Departure Patient Disposition: Home Clinical Impression: Vaginal pain, Nausea Activity Restrictions/Additional Instructions: Emergency department workup today is reassuring. No serious cause for for vaginal pain nausea and other symptoms is found at this point. I am happy to say that your evaluation does not suggest that you have a serious acute process such as sepsis ongoing. I think it is safe to continue previous home medications and contact your sales support administrator at [facility] as soon as possible for further evaluation. If you are having fevers increasing abdominal pain uncontrolled vomiting or other acute symptoms return to the emergency department Prescriptions: No Action CRANBERRY EXTRACT (Cranberry) 405 mg PO PRN Qty: 0 [PHYTOESTROGEN CREAM] BID Qty: 0 cephalexin 500 mg capsule 500 mg PO TID Qty: 15 0RF phenazopyridine [Pyridium] 100 mg tablet 100 mg PO TID PRN (Reason: pain) Qty: 6 0RF pantoprazole [Protonix] 40 mg tablet,delayed release (DR/EC) 40 mg PO DAILY Qty: 20 0RF phenazopyridine [Pyridium] 100 mg tablet 100 mg PO TID PRN (Reason: pain) Qty: 6 0RF fluconazole [Diflucan] 150 mg tablet 150 mg PO Q3D Qty: 2 0RF sucralfate [Carafate] 100 mg/mL suspension 10 ml PO QACHS Qty: 400 2RF methylprednisolone [Medrol (Pedro)] 4 mg tablets,dose pack See Rx Instructions .ROUTE .COMPLEX Qty: 21 0RF Rx Instructions: orally per package directions famotidine [Pepcid] 20 mg tablet 20 mg PO BID Qty: 10 0RF Referrals: Conor Sy [Primary Care Provider] - Stand Alone Forms: Patient Portal/API
[2023-08-13 21:20] LABS: Add Manual Diff / Slide Review NO; Basophils Absolute Auto 100 /uL (0-100); Basophils Percent Auto 0.6 % (0-2); Eosinophils Absolute Auto 200 /uL (0-450); Hemoglobin 13.1 g/dL (12.0-16.0); Lymphocytes Absolute Auto 2900 /uL (1100-4500); Lymphocytes Percent Auto 36.5 % (25-40); Mean Corpuscular HGB Conc 33.6 % (30-36); Mean Corpuscular Hemoglobin 29.3 PG (26-34); Mean Corpuscular Volume 87.2 fL (80-100); Monocytes Absolute Auto 500 /uL (0-900); Monocytes Percent Auto 5.8 % (3-14); Neutrophils Absolute Auto 4400 /uL (1500-7000); Neutrophils Percent Auto 55.1 % (50-75); Platelet Count 342 X10^3/uL (150-400); Red Blood Cell Count 4.48 X10^6/uL (4.0-5.2); Red Cell Distribution Width 13.3 % (11.6-14.8)
[2023-08-13 21:31] LABS: Alanine Aminotransferase 111 IU/L (<35); Albumin 4.3 g/dL (3.5-5.0); Albumin Globulin Ratio 1.3 (1.0-2.8); Alkaline Phosphatase 73 U/L (38-126); Aspartate Aminotransferase 64 IU/L (14-36); BUN Creatinine Ratio 22.7 (6-22); Bilirubin Total 0.5 mg/dL (0.2-1.3); Blood Urea Nitrogen 17 mg/dL (7-17); Calcium 9.3 mg/dL (8.4-10.2); Carbon Dioxide 24 mmol/L (22-32); Chloride 104 mmol/L (98-107); Estimated Glomerular Filt Rate > 60 mL/min (>60); Globulin 3.3 g/dL (1.7-4.1); Glucose 98 mg/dL (80-110); HEMOLYSIS < 15 (0-50); Sodium 135 mmol/L (137-145); Total Protein 7.6 g/dL (6.3-8.2)
[2023-08-14] VITALS: BP 159/80; PULSE 75; O2SAT 95
== END 2023-08-14 00:45 | disposition home or self-care (01) ==
PROVIDERS: Emergency Provider Emergency Medicine; PCP Student in an Organized Health Care Education/Training Program
DX: R10.2 Pelvic and perineal pain (principal); R11.0 Nausea
CPT/HCPCS: 36415; 80053; 81003; 85025; 99282

== ENCOUNTER 2023-08-31 08:38 | Emergency (ER) | payer OTHER, MEDICAID, SELFPAY ==
[2023-08-31 09:08] VITALS: BP 178/82; PULSE 75; RESP 15; TEMP 36.7; O2SAT 98; BMI 24.3
[2023-08-31 09:37] VITALS: PULSE 77; RESP 18; O2SAT 98
--- NOTE | 2023-08-31 09:49 | ED.ABDPAIN ---
HPI - Abdominal Pain General Chief Complaint: Abdominal Pain Stated Complaint: white diarrhea Time Seen by Provider: 08/31/23 09:29 Source: patient Mode of arrival: Ambulatory History of Present Illness HPI narrative: Patient is a 58-year-old female without significant past medical history presenting today with 1 episode of white stool. She reports that for the last 3 months he has had some upper respiratory like symptoms she took a COVID test 2 days ago she not concerned about her upper respiratory symptoms. She denies any cough or fever he has no sore throat. She is at the burning sensation in her umbilical area and last night she pooped white. He said this morning she had more yellow liquid stool. She says she has had decreased appetite for the last couple months yesterday she had popcorn and a Kale salad. She has not lost a significant amount of weight over the last 3 months she denies any night sweats. He is minimally nauseated without vomiting Related Data Home Medications Medication Instructions Recorded Confirmed CRANBERRY EXTRACT (Cranberry) 405 mg PO PRN ##0 11/30/12 02/21/20 [PHYTOESTROGEN CREAM] BID ##0 11/30/12 Previous Rx's Medication Instructions Recorded pantoprazole 40 mg tablet,delayed 40 mg PO DAILY #20 tabs 02/21/20 release (Protonix) cephalexin 500 mg capsule 500 mg PO TID #15 caps 09/10/20 fluconazole 150 mg tablet 150 mg PO Q3D 2 doses #2 tabs 08/15/21 (Diflucan) phenazopyridine 100 mg tablet 100 mg PO TID PRN pain 6 doses #6 08/15/21 (Pyridium) tabs sucralfate 100 mg/mL oral 10 ml PO QACHS #400 mL 07/28/22 suspension (Carafate) famotidine 20 mg tablet (Pepcid) 20 mg PO BID #10 tabs 02/01/23 methylprednisolone 4 mg tablets in See Rx Instructions PO .COMPLEX 02/01/23 a dose pack (Medrol (Pedro)) #21 ea phenazopyridine 100 mg tablet 100 mg PO TID PRN pain 6 doses #6 02/10/23 (Pyridium) tabs Allergies Allergy/AdvReac Type Severity Reaction Status Date / Time duloxetine [From Cymbalta] Allergy Verified 08/31/23 09:13 loratadine [From Claritin] Allergy Verified 08/31/23 09:13 morphine AdvReac ITCHING Verified 08/31/23 09:13 Patient History Medical History Alcohol use disorder Acid reflux Recurrent UTI Surgical History H/O: hysterectomy Social History Smoking Status: Former smoker Smoking Status: Former smoker alcohol intake frequency: holidays/special occasions only Substance Use Type: marijuana Exam Initial Vital Signs Initial Vital Signs: Vital Signs Temperature 98.1 F 08/31/23 09:08 Pulse Rate 75 08/31/23 09:08 Respiratory Rate 15 08/31/23 09:08 Blood Pressure 178/82 H 08/31/23 09:08 Pulse Oximetry 98 08/31/23 09:08 Oxygen Delivery Method Room Air 08/31/23 09:08 GENERAL: Alert nontoxic well-appearing 58-year-old female and in no acute distress. HEENT: Head atraumatic,EOMI, pupils reactive, face symmetric, moist mucous membranes CARDIOVASCULAR: Regular rate and rhythm without murmurs, rubs or gallops. RESPIRATORY: Breath sounds equal bilaterally, no wheezes rales or rhonchi. ABDOMEN: Soft, nontender. Normoactive bowel sounds all 4 quadrants. No guarding or rebound. EXTREMITIES: Normal range of motion, no clubbing or edema. Neurovascularly intact NEUROLOGICAL: Alert and oriented x4.Normal gait and speech. Cranial nerves II through XII grossly intact. SKIN: Warm, dry, no laceration, no petechiae, no rashes or lesions. Course Orders Ordered: Discontinued Medications Ondansetron HCl (Ondansetron 4 Mg/2 Ml Inj) 4 mg IV NOW PRN PRN Reason: Nausea And Vomiting Vital Signs Vital signs: Vital Signs - 8 hr 08/31/23 09:08 08/31/23 09:37 Temperature 98.1 F Pulse Rate 75 77 Respiratory Rate 15 18 Blood Pressure 178/82 H Pulse Oximetry 98 98 Oxygen Delivery Method Room Air Room Air MDM - Abdominal Pain Lab Data 08/31/23 09:39 08/31/23 09:39 Labs: Lab Results 08/31/23 Range/Units 09:39 WBC 5.5 (4.5-11.0) X10^3/uL RBC 4.19 (4.0-5.2) X10^6/uL Hgb 12.7 (12.0-16.0) g/dL Hct 37.4 (36-46) % MCV 89.2 (80-100) fL MCH 30.2 (26-34) PG MCHC 33.9 (30-36) % RDW 12.9 (11.6-14.8) % Plt Count 314 (150-400) X10^3/uL Neut % (Auto) 49.9 L (50-75) % Lymph % (Auto) 41.6 H (25-40) % Antelope % (Auto) 6.0 (3-14) % Eos % (Auto) 1.8 L (2-4) % Baso % (Auto) 0.7 (0-2) % Neut # (Auto) 2700 (5659-0973) /uL Lymph # (Auto) 2300 (8794-7474) /uL Antelope # (Auto) 300 (0-900) /uL Eos # (Auto) 100 (0-450) /uL Baso # (Auto) 0 (0-100) /uL Sodium 136 L (137-145) mmol/L Potassium 3.8 (3.4-5.1) mmol/L Chloride 103 (98-107) mmol/L Carbon Dioxide 28 (22-32) mmol/L BUN 5 L (7-17) mg/dL Creatinine 0.56 (0.52-1.04) mg/dL Estimated GFR > 60 (>60) mL/min BUN/Creatinine Ratio 8.9 (6-22) Glucose 94 (80-110) mg/dL Calcium 8.6 (8.4-10.2) mg/dL Total Bilirubin 0.7 (0.2-1.3) mg/dL AST 57 H (14-36) IU/L ALT 84 H (<35) IU/L Alkaline Phosphatase 66 (38-126) U/L Total Protein 7.3 (6.3-8.2) g/dL Albumin 4.2 (3.5-5.0) g/dL Globulin 3.1 (1.7-4.1) g/dL Albumin/Globulin Ratio 1.4 (1.0-2.8) Lipase 97 (23-300) U/L MDM Narrative Medical decision making narrative: 58-year-old female presents today with 1 episode white stool last night but now yellow this morning. She is minimal abdominal burning no nausea or vomiting. She has a variety of complaints today. It sounds like she good PCP. Blood work has been reviewed and is unremarkable. She has no evidence of pancreatitis. At this time I see no need for imaging her abdomen is soft and nontender she has no nausea or vomiting. This time I recommend outpatient follow-up with a colonoscopy. Discharge Plan Departure Patient Disposition: Home Clinical Impression: Diarrhea Instructions: Diarrhea Activity Restrictions/Additional Instructions: *You have been diagnosed with diarrhea *What to do: At this time blood work is overall reassuring. As long as your stool continues to get brown again you can follow-up with your primary care provider. You may require an outpatient colonoscopy *Continue to take medications as directed *Follow up with your primary care provider in 2-3 days or call [phone] *Return to ER if you should have increasing abdominal pain dizziness lightheadedness or any new, worsening or concerning symptoms Prescriptions: No Action CRANBERRY EXTRACT (Cranberry) 405 mg PO PRN Qty: 0 [PHYTOESTROGEN CREAM] BID Qty: 0 cephalexin 500 mg capsule 500 mg PO TID Qty: 15 0RF phenazopyridine [Pyridium] 100 mg tablet 100 mg PO TID PRN (Reason: pain) Qty: 6 0RF pantoprazole [Protonix] 40 mg tablet,delayed release (DR/EC) 40 mg PO DAILY Qty: 20 0RF phenazopyridine [Pyridium] 100 mg tablet 100 mg PO TID PRN (Reason: pain) Qty: 6 0RF fluconazole [Diflucan] 150 mg tablet 150 mg PO Q3D Qty: 2 0RF sucralfate [Carafate] 100 mg/mL suspension 10 ml PO QACHS Qty: 400 2RF methylprednisolone [Medrol (Pedro)] 4 mg tablets,dose pack See Rx Instructions .ROUTE .COMPLEX Qty: 21 0RF Rx Instructions: orally per package directions famotidine [Pepcid] 20 mg tablet 20 mg PO BID Qty: 10 0RF Referrals: Conor Sy [Primary Care Provider] - Stand Alone Forms: Patient Portal/API
[2023-08-31 09:55] LABS: Add Manual Diff / Slide Review NO; Basophils Absolute Auto 0 /uL (0-100); Basophils Percent Auto 0.7 % (0-2); Eosinophils Absolute Auto 100 /uL (0-450); Eosinophils Percent Auto 1.8 % (2-4); Hematocrit 37.4 % (36-46); Hemoglobin 12.7 g/dL (12.0-16.0); Lymphocytes Absolute Auto 2300 /uL (1100-4500); Lymphocytes Percent Auto 41.6 % (25-40); Mean Corpuscular HGB Conc 33.9 % (30-36); Mean Corpuscular Hemoglobin 30.2 PG (26-34); Mean Corpuscular Volume 89.2 fL (80-100); Monocytes Absolute Auto 300 /uL (0-900); Neutrophils Absolute Auto 2700 /uL (1500-7000); Neutrophils Percent Auto 49.9 % (50-75); Platelet Count 314 X10^3/uL (150-400); Red Blood Cell Count 4.19 X10^6/uL (4.0-5.2); Red Cell Distribution Width 12.9 % (11.6-14.8); White Blood Cell Count 5.5 X10^3/uL (4.5-11.0)
[2023-08-31 10:07] LABS: Alanine Aminotransferase 84 IU/L (<35); Albumin 4.2 g/dL (3.5-5.0); Albumin Globulin Ratio 1.4 (1.0-2.8); Alkaline Phosphatase 66 U/L (38-126); Aspartate Aminotransferase 57 IU/L (14-36); BUN Creatinine Ratio 8.9 (6-22); Bilirubin Total 0.7 mg/dL (0.2-1.3); Blood Urea Nitrogen 5 mg/dL (7-17); Calcium 8.6 mg/dL (8.4-10.2); Carbon Dioxide 28 mmol/L (22-32); Chloride 103 mmol/L (98-107); Estimated Glomerular Filt Rate > 60 mL/min (>60); Globulin 3.1 g/dL (1.7-4.1); Glucose 94 mg/dL (80-110); HEMOLYSIS < 15 (0-50); Lipase 97 U/L (23-300); Potassium 3.8 mmol/L (3.4-5.1); Sodium 136 mmol/L (137-145); Total Protein 7.3 g/dL (6.3-8.2)
[2023-08-31 11:25] VITALS: BP 138/60; PULSE 70; RESP 16; O2SAT 99
== END 2023-08-31 12:03 | disposition home or self-care (01) ==
PROVIDERS: Emergency Provider Emergency Medicine; PCP Student in an Organized Health Care Education/Training Program
DX: R19.7 Diarrhea, unspecified (principal)
CPT/HCPCS: 36415; 80053; 83690; 85025; 99283

== ENCOUNTER 2023-12-18 12:45 | Emergency (ER) | payer OTHER, MEDICAID, SELFPAY ==
[2023-12-18] VITALS (12 sets, daily range): BP systolic 137–247; BP diastolic 86–136; PULSE 69–96; RESP 11–26; TEMP 36.7; O2SAT 96–99; BMI 23.3
--- NOTE | 2023-12-18 12:58 | DI.RAD.S_ITS ---
PROCEDURE: XR CHEST 1V INDICATIONS: chest pain TECHNIQUE: One view of the chest was acquired. COMPARISON: [facility], CR, XR CHEST 1V, 04/07/2023, 13:45. FINDINGS: Surgical changes and devices: None. Lungs and pleura: Lungs are clear. No pleural effusions or pneumothorax. Mediastinum: Mediastinal contours appear normal. Heart size is normal. Bones and chest wall: No suspicious bony lesions. Possible callus surrounding the right 10th lateral rib arc. Overlying soft tissues appear unremarkable. IMPRESSION: No acute cardiopulmonary disease. Possible healing right 10th rib fracture. Dictated by: Marie Silverio M.D. on 12/18/2023 at 15:34 Approved by: Marie Silverio M.D. on 12/18/2023 at 15:35
[2023-12-18 13:14] LABS: Add Manual Diff / Slide Review NO; Basophils Absolute Auto 100 /uL (0-100); Basophils Percent Auto 0.9 % (0-2); Eosinophils Absolute Auto 100 /uL (0-450); Eosinophils Percent Auto 0.8 % (2-4); Hemoglobin 13.9 g/dL (12.0-16.0); Lymphocytes Absolute Auto 2800 /uL (1100-4500); Lymphocytes Percent Auto 41.2 % (25-40); Mean Corpuscular HGB Conc 33.9 % (30-36); Mean Corpuscular Hemoglobin 30.4 PG (26-34); Mean Corpuscular Volume 89.7 fL (80-100); Monocytes Absolute Auto 300 /uL (0-900); Monocytes Percent Auto 4.9 % (3-14); Neutrophils Absolute Auto 3600 /uL (1500-7000); Neutrophils Percent Auto 52.2 % (50-75); Platelet Count 395 X10^3/uL (150-400); Red Blood Cell Count 4.57 X10^6/uL (4.0-5.2); Red Cell Distribution Width 12.8 % (11.6-14.8); White Blood Cell Count 6.9 X10^3/uL (4.5-11.0)
[2023-12-18 13:18] LABS: Prothrombin Time 11.3 SECONDS (9.4-12.5)
[2023-12-18 13:21] LABS: PTT Partial Thromboplastin Tim 36 SECONDS (25.1-36.5)
[2023-12-18 13:23] LABS: Alanine Aminotransferase 36 IU/L (<35); Albumin 4.9 g/dL (3.5-5.0); Albumin Globulin Ratio 1.6 (1.0-2.8); Alkaline Phosphatase 95 U/L (38-126); Aspartate Aminotransferase 38 IU/L (14-36); BUN Creatinine Ratio 12.3 (6-22); Bilirubin Total 0.8 mg/dL (0.2-1.3); Blood Urea Nitrogen 8 mg/dL (7-17); Calcium 9.5 mg/dL (8.4-10.2); Carbon Dioxide 25 mmol/L (22-32); Chloride 104 mmol/L (98-107); Creatine Kinase 54 U/L (30-135); Estimated Glomerular Filt Rate > 60 mL/min (>60); Globulin 3.1 g/dL (1.7-4.1); Glucose 111 mg/dL (80-110); Lipase 84 U/L (23-300); Potassium 3.7 mmol/L (3.4-5.1); Sodium 137 mmol/L (137-145)
[2023-12-18 13:37] LABS: HEMOLYSIS < 15 (0-50); Troponin I < 0.012 ng/mL (0.01-0.034)
[2023-12-18 16:30] LABS: Troponin I < 0.012 ng/mL (0.01-0.034)
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
== END 2023-12-18 17:50 | disposition home or self-care (01) ==
PROVIDERS: Emergency Provider Emergency Medicine; PCP Student in an Organized Health Care Education/Training Program
DX: R07.9 Chest pain, unspecified (principal); R06.02 Shortness of breath; R42 Dizziness and giddiness
CPT/HCPCS: 36415; 71045; 80053; 82550; 83690; 83735; 84484; 85025; 85610; 85730; 93005; 93010; 99283; 99284

== ENCOUNTER 2023-12-23 18:31 | Emergency (ER) | payer OTHER, MEDICAID, SELFPAY ==
[2023-12-23 18:48] VITALS: BP 166/84; PULSE 101; RESP 16; O2SAT 98; BMI 24.0
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
[2023-12-23 21:09] VITALS: BP 152/87; PULSE 92; RESP 16; O2SAT 97
== END 2023-12-23 21:09 | disposition home or self-care (01) ==
PROVIDERS: Emergency Provider Emergency Medicine; PCP Student in an Organized Health Care Education/Training Program
DX: S09.90XA Unspecified injury of head, initial encounter (principal); Y04.2XXA Assault by strike against or bumped into by another person, initial encounter; Z79.899 Other long term (current) drug therapy
CPT/HCPCS: 70450; 99281; 99284

== ENCOUNTER 2024-06-21 11:56 | Emergency (ER) | payer MEDICARE, MEDICAID, SELFPAY ==
[2024-06-21] VITALS (19 sets, daily range): BP systolic 139–182; BP diastolic 74–96; PULSE 63–82; RESP 10–22; TEMP 36.6–36.7; O2SAT 95–98; BMI 24.1
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
[2024-06-21 12:28] LABS: Add Manual Diff / Slide Review NO; Basophils Absolute Auto 100 /uL (0-100); Basophils Percent Auto 0.8 % (0-2); Eosinophils Absolute Auto 200 /uL (0-450); Eosinophils Percent Auto 2.3 % (2-4); Hematocrit 40.8 % (36-46); Hemoglobin 13.7 g/dL (12.0-16.0); Lymphocytes Absolute Auto 3000 /uL (1100-4500); Lymphocytes Percent Auto 40.1 % (25-40); Mean Corpuscular HGB Conc 33.5 % (30-36); Mean Corpuscular Hemoglobin 30.1 PG (26-34); Mean Corpuscular Volume 89.9 fL (80-100); Monocytes Absolute Auto 400 /uL (0-900); Monocytes Percent Auto 5.9 % (3-14); Neutrophils Absolute Auto 3800 /uL (1500-7000); Neutrophils Percent Auto 50.9 % (50-75); Platelet Count 331 X10^3/uL (150-400); Red Blood Cell Count 4.54 X10^6/uL (4.0-5.2); Red Cell Distribution Width 12.8 % (11.6-14.8); White Blood Cell Count 7.5 X10^3/uL (4.5-11.0)
--- NOTE | 2024-06-21 12:34 | EKG_ITS ---
[address] [address] Test Date: 2024-06-21 Pat Name: Liudmila Green Department: [facility] Room: Gender: Female Overlock Hemmer: TATUM : 1965 Requested By: Order Number: [id number] Reading MD: Kd Limon MD Measurements Intervals [place] Rate: 60 P: 58 W[place]: 168 QRS: 70 QRSD: 80 T: 65 QT: 424 QTc: 424 Interpretive Statements Normal sinus rhythm Electronically Signed On 06-22-2024 16:16:30 PST by Kd Limon MD
[2024-06-21 12:35] LABS: INR 0.9 (0.9-1.3); Prothrombin Time 10.6 SECONDS (9.4-12.5)
[2024-06-21 12:38] LABS: PTT Partial Thromboplastin Tim 24 SECONDS (25.1-36.5)
[2024-06-21 12:40] LABS: Alanine Aminotransferase 28 IU/L (<35); Albumin 4.6 g/dL (3.5-5.0); Albumin Globulin Ratio 1.5 (1.0-2.8); Alkaline Phosphatase 65 U/L (38-126); Aspartate Aminotransferase 33 IU/L (14-36); BUN Creatinine Ratio 20.3 (6-22); Bilirubin Total 0.4 mg/dL (0.2-1.3); Blood Urea Nitrogen 14 mg/dL (7-17); Calcium 9.4 mg/dL (8.4-10.2); Carbon Dioxide 24 mmol/L (22-32); Chloride 103 mmol/L (98-107); Estimated Glomerular Filt Rate > 60 mL/min (>60); Globulin 3.1 g/dL (1.7-4.1); Glucose 98 mg/dL (80-110); HEMOLYSIS < 15 (0-50); Potassium 3.9 mmol/L (3.4-5.1); Sodium 134 mmol/L (137-145); Total Protein 7.7 g/dL (6.3-8.2)
--- NOTE | 2024-06-21 13:05 | DI.CT.S_ITS ---
PROCEDURE: CT ABDOMEN PELVIS W CON INDICATIONS: LUQ pain and dark stools TECHNIQUE: After the administration of intravenous contrast, axial sections acquired from the lung bases to the pubic symphysis. Coronal and sagittal reformats were performed. For radiation dose reduction, the following was used: automated exposure control, adjustment of mA and/or kV according to patient size. COMPARISON: None. FINDINGS: Image quality: Diagnostic. Lower Chest: No significant findings. ABDOMEN: Liver: No solid mass. Gallbladder: No radiopaque gallstones or wall thickening. Biliary ducts: No biliary dilation. Pancreas: No ductal dilation. Spleen: Size is within normal limits. Adrenal Glands: No adrenal nodules. Kidneys and Ureters: No hydronephrosis. No solid mass. No complex renal cystic lesion which requires follow up. Stomach and Bowel: Diffuse wall thickening of the large bowel. Peritoneum: No abnormal intraperitoneal fluid. No free air. Ventral Wall: No significant ventral hernia. Abdominal Nodes: No retroperitoneal or mesenteric adenopathy by size criteria. Vessels: Aorta and inferior vena cava are normal in size. PELVIS: Pelvic Organs: Unremarkable. Bladder: No bladder wall thickening, accounting for underdistention. Pelvic Nodes: No enlarged lymph nodes. Miscellaneous: No inguinal hernias are seen. Bones: No aggressive osseous abnormality. IMPRESSION: Pancolitis, concerning for C difficile. Dictated by: Herb Tomlinson M.D. on 06/21/2024 at 14:53 Approved by: Herb Tomlinson M.D. on 06/21/2024 at 14:56
[2024-06-21] MEDS: PANTOPRAZOLE 40 MG VIAL 80 MG IV (13:09)
[2024-06-21] MEDS: ONDANSETRON 4 MG/2 ML INJ IV (13:09)
--- NOTE | 2024-06-21 13:53 | PC.NURSE ---
Addendum entered by Noreen Lara R.N. 06/21/24 13:56: Pt states low grade fever. Original Note: Reports black stool starting this morning. Pt reports LLQ pain. Pt states previous days she had bright red blood. Pt states she had black licorice a week ago and blueberries yesterday. Pt states her bowel movments look like black cauliflower.
[2024-06-21 18:13] LABS: Clostridium Difficile Tox PCR Negative for C. diff (Negative)
--- NOTE | 2024-06-21 18:52 | PC.NURSE ---
Loose melena stool.
== END 2024-06-21 18:55 | disposition home or self-care (01) ==
PROVIDERS: Emergency Medicine; Emergency Provider Physician Assistant Medical; PCP Student in an Organized Health Care Education/Training Program
DX: R10.12 Left upper quadrant pain (principal); R19.5 Other fecal abnormalities; Z86.19 Personal history of other infectious and parasitic diseases
CPT/HCPCS: 36415; 74177; 80053; 81003; 82272; 85025; 85610; 85730; 86850; 86900; 86901; 87493; 93005; 96374; 96375; 99284; J2405; J2470; Q9967

== ENCOUNTER 2024-07-23 12:09 | Emergency (ER) | payer MEDICARE, MEDICAID, SELFPAY ==
[2024-07-23] VITALS (11 sets, daily range): BP systolic 134–152; BP diastolic 63–88; PULSE 72–87; RESP 16–17; TEMP 36.4; O2SAT 96–98; BMI 22.9
--- NOTE | 2024-07-23 12:21 | EKG_ITS ---
[address] [address] Test Date: 2024-07-23 Pat Name: Liudmila Green Department: [facility] Room: Gender: Female Ict Teacher: KRISTIN : 1965 Requested By: Order Number: [id number] Reading MD: Kd Limon MD Measurements Intervals [place] Rate: 68 P: 76 [place]: 172 QRS: 80 QRSD: 88 T: 74 QT: 412 QTc: 438 Interpretive Statements Normal sinus rhythm Electronically Signed On 07-24-2024 8:42:04 PST by Kd Limon MD
[2024-07-23 12:43] LABS: Add Manual Diff / Slide Review NO; Basophils Absolute Auto 0 /uL (0-100); Basophils Percent Auto 0.6 % (0-2); Eosinophils Absolute Auto 100 /uL (0-450); Eosinophils Percent Auto 1.4 % (2-4); Hemoglobin 13.3 g/dL (12.0-16.0); Lymphocytes Absolute Auto 2600 /uL (1100-4500); Lymphocytes Percent Auto 38.4 % (25-40); Mean Corpuscular HGB Conc 34.2 % (30-36); Mean Corpuscular Hemoglobin 30.4 PG (26-34); Mean Corpuscular Volume 88.9 fL (80-100); Monocytes Absolute Auto 400 /uL (0-900); Monocytes Percent Auto 6.4 % (3-14); Neutrophils Absolute Auto 3600 /uL (1500-7000); Neutrophils Percent Auto 53.2 % (50-75); Platelet Count 327 X10^3/uL (150-400); Red Blood Cell Count 4.39 X10^6/uL (4.0-5.2); Red Cell Distribution Width 12.4 % (11.6-14.8); White Blood Cell Count 6.7 X10^3/uL (4.5-11.0)
--- NOTE | 2024-07-23 12:48 | ED.GENADULT ---
HPI - General Adult General Chief complaint: Abdominal Pain Stated complaint: Poss Bowel Obstruction, Abd Pain Time Seen by Provider: 07/23/24 12:29 Source: patient Mode of arrival: Ambulatory History of Present Illness HPI narrative: 59-year-old woman comes in with diffuse abdominal pain complaining of significant change in stools, 5 lb weight loss, symptoms all worse with eating getting to the point where she is almost afraid to eat, she notes she has long COVID with significant fatigue and secondary symptoms from that. She had a colonoscopy in February of last year with no cancers or tumors. CT scan done June 21, 2024 showed diffuse wall thickening of the large bowel. She feels that she is simply getting more and more tired, noticing psoriasis outbreaks she is feeling more run down and is worried that she may have a bowel obstruction. Related Data Home Medications Medication Instructions Recorded Confirmed CRANBERRY EXTRACT (Cranberry) 405 mg PO PRN ##0 11/30/12 02/21/20 [PHYTOESTROGEN CREAM] BID ##0 11/30/12 Previous Rx's Medication Instructions Recorded pantoprazole 40 mg tablet,delayed 40 mg PO DAILY #20 tabs 02/21/20 release (Protonix) cephalexin 500 mg capsule 500 mg PO TID #15 caps 09/10/20 fluconazole 150 mg tablet 150 mg PO Q3D 2 doses #2 tabs 08/15/21 (Diflucan) phenazopyridine 100 mg tablet 100 mg PO TID PRN pain 6 doses #6 08/15/21 (Pyridium) tabs sucralfate 100 mg/mL oral 10 ml PO QACHS #400 mL 07/28/22 suspension (Carafate) famotidine 20 mg tablet (Pepcid) 20 mg PO BID #10 tabs 02/01/23 methylprednisolone 4 mg tablets in See Rx Instructions PO .COMPLEX 02/01/23 a dose pack (Medrol (Pedro)) #21 ea phenazopyridine 100 mg tablet 100 mg PO TID PRN pain 6 doses #6 02/10/23 (Pyridium) tabs Allergies Allergy/AdvReac Type Severity Reaction Status Date / Time duloxetine [From Cymbalta] AdvReac Severe Immediate Verified 07/23/24 12:14 intractable Vomiting loratadine [From Claritin] AdvReac hair loss Verified 07/23/24 12:14 morphine AdvReac ITCHING Verified 07/23/24 12:14 Review of Systems Review of Systems Narrative: Pertinent positive and negative findings as per HPI Patient History Medical History (Updated 07/23/24 @ 16:41 by Alysha Mata MD) Long COVID Alcohol use disorder Acid reflux Recurrent UTI Surgical History H/O: hysterectomy Social History Smoking Status: Former smoker Smoking Status: Former smoker alcohol intake frequency: 0-2 drinks per day Exam Initial Vital Signs Initial Vital Signs: Vital Signs Temperature 97.5 F L 07/23/24 12:14 Pulse Rate 80 07/23/24 12:14 Respiratory Rate 17 07/23/24 12:14 Blood Pressure 134/63 07/23/24 12:14 Pulse Oximetry 98 07/23/24 12:14 Oxygen Delivery Method Room Air 07/23/24 12:14 General: Chronically ill-appearing, no acute distress able to cooperate fully with H and P HEENT: Moist mucous membranes, normal sclera with reactive pupils, Respiratory: Lungs are clear to auscultation, no wheezing no rales no rhonchi. Full and symmetrical air movement Cardiac: Regular rate and rhythm no murmurs no bruits Abdomen: Soft, mild diffuse tenderness without rebound or guarding. No flank pain Skin: Somewhat pale but otherwise Warm and dry, no rashes Neurologic: Globally weak but Grossly neurologically intact with no obvious asymmetries or abnormalities Extremities: No trauma, well perfused Psych: Cooperative, appropriate insight and affect Course Orders Ordered: ED Orders 07/23/24 12:21 EKG-12 Lead Stat 07/23/24 12:34 Complete Blood Count AUTO DIFF Stat Comprehensive Metabolic Panel Stat Lipase Stat 07/23/24 13:04 CT angio abdomen pelvis Stat 07/23/24 14:48 GI Panel (Film Array) Stat Ondansetron HCl (Ondansetron 4 Mg/2 Ml Inj) 4 mg IV NOW PRN PRN Reason: Nausea And Vomiting Ondansetron HCl (Ondansetron 4 Mg Odt) 4 mg PO NOW PRN PRN Reason: Nausea And Vomiting Discontinued Medications Acetaminophen (Acetaminophen 325 Mg Tablet) 975 mg PO NOW ONE Stop: 07/23/24 13:37 Last Admin: 07/23/24 13:41 Dose: 975 mg Documented By: JP Sodium Chloride (Normal Saline 0.9%) 1,000 mls @ 1,000 mls/hr IV BOLUS ONE Stop: 07/23/24 14:04 Last Infusion: 07/23/24 14:40 Dose: Infused Documented By: Admin: 07/23/24 13:19 Dose: 1,000 mls/hr Documented By: JP Ondansetron HCl (Ondansetron 4 Mg/2 Ml Inj) 4 mg IV NOW ONE Stop: 07/23/24 13:06 Last Admin: 07/23/24 13:19 Dose: 4 mg Documented By: JP Vital Signs Vital signs: Vital Signs - 8 hr 07/23/24 12:14 07/23/24 12:36 07/23/24 13:00 Temperature 97.5 F L Pulse Rate 80 72 85 Respiratory Rate 17 Blood Pressure 134/63 Pulse Oximetry 98 97 96 Oxygen Delivery Method Room Air 07/23/24 13:30 07/23/24 14:00 07/23/24 14:30 Temperature Pulse Rate 77 77 87 Respiratory Rate Blood Pressure Pulse Oximetry 98 97 98 Oxygen Delivery Method 07/23/24 14:56 Temperature Pulse Rate 75 Respiratory Rate 16 Blood Pressure 152/73 H Pulse Oximetry 97 Oxygen Delivery Method Room Air Medical Decision Making Lab Data 07/23/24 12:34 07/23/24 12:34 Labs: Lab Results 07/23/24 07/23/24 Range/Units 12:34 14:48 WBC 6.7 (4.5-11.0) X10^3/uL RBC 4.39 (4.0-5.2) X10^6/uL Hgb 13.3 (12.0-16.0) g/dL Hct 39.0 (36-46) % MCV 88.9 (80-100) fL MCH 30.4 (26-34) PG MCHC 34.2 (30-36) % RDW 12.4 (11.6-14.8) % Plt Count 327 (150-400) X10^3/uL Neut % (Auto) 53.2 (50-75) % Lymph % (Auto) 38.4 (25-40) % [place] % (Auto) 6.4 (3-14) % Eos % (Auto) 1.4 L (2-4) % Baso % (Auto) 0.6 (0-2) % Neut # (Auto) 3600 (7474-5750) /uL Lymph # (Auto) 2600 (4234-8968) /uL [place] # (Auto) 400 (0-900) /uL Eos # (Auto) 100 (0-450) /uL Baso # (Auto) 0 (0-100) /uL Sodium 133 L (137-145) mmol/L Potassium 4.5 (3.4-5.1) mmol/L Chloride 104 (98-107) mmol/L Carbon Dioxide 23 (22-32) mmol/L BUN 10 (7-17) mg/dL Creatinine 0.98 (0.52-1.04) mg/dL Estimated GFR > 60 (>60) mL/min BUN/Creatinine Ratio 10.2 (6-22) Glucose 104 (80-110) mg/dL Calcium 8.9 (8.4-10.2) mg/dL Total Bilirubin 0.4 (0.2-1.3) mg/dL AST 28 (14-36) IU/L ALT 25 (<35) IU/L Alkaline Phosphatase 65 (38-126) U/L Total Protein 7.5 (6.3-8.2) g/dL Albumin 4.7 (3.5-5.0) g/dL Globulin 2.8 (1.7-4.1) g/dL Albumin/Globulin Ratio 1.7 (1.0-2.8) Lipase 114 (23-300) U/L Stl C. cayetanensis PCR Not detected (Not Detect) Stool Rotavirus (PCR) Not detected (Not Detect) Stool Adenovirus (PCR) Not detected (Not Detect) Stool Astrovirus (PCR) Not detected (Not Detect) Stool Cryptosporidium PCR Not detected (Not Detect) Stl E.coli Shiga Tox PCR Not detected (Not Detect) St Sh/Enteroin Ecoli PCR Not detected (Not Detect) Stl Enterotoxigenic E PCR Not detected (Not Detect) Stool EPEC (PCR) Not detected (Not Detect) Stl E. histolytica PCR Not detected (Not Detect) Stool Giardia Lamblia PCR Not detected (Not Detect) Stool Sapovirus (PCR) Not detected (Not Detect) Stl P. shigelloides PCR Not detected (Not Detect) St Y.enterocolitica PCR Not detected (Not Detect) Stool Vibrio (PCR) Not detected (Not Detect) Stl Vibrio cholerae PCR Not detected (Not Detect) Stl Enteroaggr Ecoli PCR Not detected (Not Detect) Stl Norovirus GI/GII PCR Not detected (Not Detect) Campylobacter (PCR) Not detected (Not Detect) C. difficile Tox (PCR) Not detected (Not Detect) Salmonella (PCR) Not detected (Not Detect) Urine Dip Bedside Urine Glucose Negative Bedside Urine Bilirubin - Negative Bedside Urine Ketone - Negative Urine Specific [place] 1.010 Bedside Urine Occult Blood - Negative Bedside Urine pH 6.0 Bedside Urine Protein - Negative Bedside Urine Urobilinogen - Negative Bedside Urine Nitrite - Negative Bedside Urine Leukocytes - Negative Esterase Point of care testing: Urine Dip Bedside Urine Glucose Negative Bedside Urine Bilirubin - Negative Bedside Urine Ketone - Negative Urine Specific [place] 1.010 Bedside Urine Occult Blood - Negative Bedside Urine pH 6.0 Bedside Urine Protein - Negative Bedside Urine Urobilinogen - Negative Bedside Urine Nitrite - Negative Bedside Urine Leukocytes - Negative Esterase Imaging Data CT scan - abdomen/pelvis: Radiologist's Impression: PROCEDURE: CT ANGIO ABDOMEN PELVIS INDICATIONS: Concern for mesenteric ischemia. Bloating with diarrhea for 2 months. TECHNIQUE: After the administration of intravenous contrast, 2.5 mm sections acquired from the diaphragm to the iliac crests. 10 mm maximum intensity projection (MIP) coronal and sagittal reformats were then performed. For radiation dose reduction, the following was used: automated exposure control. COMPARISON: [facility], CT, CT ANGIO ABDOMEN PELVIS, 09/02/2022, 12:42. FINDINGS: Image quality: Diagnostic. Abdominal aorta: No aortic aneurysm or evidence of acute aortic syndrome. Mesenteric arteries: Patent without hemodynamically significant stenosis. Renal arteries: Patent without hemodynamically significant stenosis. Lower chest: Unremarkable. ABDOMEN: Liver: No solid mass. Gallbladder: No radiopaque gallstones or wall thickening. Biliary ducts: No biliary dilation. Pancreas: No ductal dilation. Sub 5 millimeter hypoattenuating lesion in the pancreatic body, stable from prior and probably a benign cystic lesion or volume averaging artifact. Spleen: Size is within normal limits. Adrenal Glands: No adrenal nodules. Kidneys and Ureters: No hydronephrosis. No solid mass. No complex renal cystic lesion which requires follow up. Stomach and Bowel: Normal colonic caliber, without significant wall thickening. Normal appendix. No significant diverticulosis. Peritoneum: No abnormal intraperitoneal fluid. No free air. Ventral Wall: No hernia. Abdominal Nodes: No retroperitoneal or mesenteric adenopathy by size criteria. Vessels: Aorta, as above. Normal IVC. PELVIS: Pelvic Organs: Unremarkable. Bladder: Unremarkable. Pelvic Nodes: No enlarged lymph nodes. Miscellaneous: No inguinal hernias are seen. Bones: No aggressive osseous abnormality. IMPRESSION: No significant atherosclerotic disease or findings to support chronic mesenteric ischemia. Dictated by: Herb Tomlinson M.D. on 07/23/2024 at 13:48 MDM Narrative Medical decision making narrative: CC: Abdominal pain Complicating co-morbidities: Long COVID with multiple chronic abdominal issues and fatigue Data collected from: patient Medical records reviewed: ER visits with complaints of abdominal pain, dark stools, chest pain, nausea, diarrhea, acute chest wall pain, reactive airway disease, urinary tract infection all within the last 18 months reviewed Differential considered: Mesenteric ischemia, functional bowel obstruction, electrolyte abnormalities Exam documented above, pertinent findings include: Appears fatigued, diffuse abdominal tenderness without having an acute surgical abdomen. Remainder of exam is benign Lab Test results independently reviewed as above. Pertinent findings: CBC is unremarkable Chemistries are reassuring Lipase is within normal limits Point of care urinalysis is entirely unremarkable Imaging studies independently reviewed: CT angio of the abdomen and pelvis is done which confirms absence of mesenteric ischemia or significant bowel inflammation Treatments: IV Zofran,1 L of fluid Discussion: 59-year-old woman suffering from long COVID, apparently had severe COVID with the initial strain in 2019. Working with multiple providers but continues to have multiple complaints without obvious underlying pathology that could be acutely reversed. There was no evidence of mesenteric ischemia, bowel obstruction or other GI infection at this time. She has had recent colonoscopy has GI consultation coming up near future. Electrolytes were unremarkable she is feeling slightly better after a L of fluid. Unfortunately I do not have much else to offer to help her suffering. She has had significant luck in working with non food receiving clerk physicians in the past and I suggested she consider that alternative to continue working with her overall fatigue. At this point questions are answered and she is safe for discharge home Discharge Plan Departure Patient Disposition: Home Clinical Impression: COVID-19 long hauler Abdominal pain Qualifiers: Abdominal location: generalized Qualified Code(s): R10.84 - Generalized abdominal pain Fatigue Qualifiers: Fatigue type: unspecified Qualified Code(s): R53.83 - Other fatigue Activity Restrictions/Additional Instructions: Thank you for coming in today I did not find any life-threatening explanations for the pain that you are experiencing today. We looked for mesenteric ischemia which was not found. Your CT scan was actually quite reassuring. Your blood work looked normal with no significant liver kidney abnormalities At this time I do not have additional suggestions for you. I agree that this is most likely inflammation and a management issue. We did discuss considering consultation with a non food receiving clerk physician If you find that you are getting worse or develop any new symptoms, please feel free to return to the emergency department for further evaluation. Prescriptions: No Action CRANBERRY EXTRACT (Cranberry) 405 mg PO PRN Qty: 0 [PHYTOESTROGEN CREAM] BID Qty: 0 cephalexin 500 mg capsule 500 mg PO TID Qty: 15 0RF phenazopyridine [Pyridium] 100 mg tablet 100 mg PO TID PRN (Reason: pain) Qty: 6 0RF pantoprazole [Protonix] 40 mg tablet,delayed release (DR/EC) 40 mg PO DAILY Qty: 20 0RF phenazopyridine [Pyridium] 100 mg tablet 100 mg PO TID PRN (Reason: pain) Qty: 6 0RF fluconazole [Diflucan] 150 mg tablet 150 mg PO Q3D Qty: 2 0RF sucralfate [Carafate] 100 mg/mL suspension 10 ml PO QACHS Qty: 400 2RF methylprednisolone [Medrol (Pedro)] 4 mg tablets,dose pack See Rx Instructions .ROUTE .COMPLEX Qty: 21 0RF Rx Instructions: orally per package directions famotidine [Pepcid] 20 mg tablet 20 mg PO BID Qty: 10 0RF Referrals: Conor Sy [Primary Care Provider] - Stand Alone Forms: Patient Portal/API/Survey
[2024-07-23 12:55] LABS: Alanine Aminotransferase 25 IU/L (<35); Albumin 4.7 g/dL (3.5-5.0); Albumin Globulin Ratio 1.7 (1.0-2.8); Alkaline Phosphatase 65 U/L (38-126); Aspartate Aminotransferase 28 IU/L (14-36); BUN Creatinine Ratio 10.2 (6-22); Bilirubin Total 0.4 mg/dL (0.2-1.3); Blood Urea Nitrogen 10 mg/dL (7-17); Calcium 8.9 mg/dL (8.4-10.2); Carbon Dioxide 23 mmol/L (22-32); Chloride 104 mmol/L (98-107); Estimated Glomerular Filt Rate > 60 mL/min (>60); Globulin 2.8 g/dL (1.7-4.1); Glucose 104 mg/dL (80-110); HEMOLYSIS < 15 (0-50); Lipase 114 U/L (23-300); Potassium 4.5 mmol/L (3.4-5.1); Sodium 133 mmol/L (137-145); Total Protein 7.5 g/dL (6.3-8.2)
--- NOTE | 2024-07-23 13:04 | DI.CT.S_ITS ---
PROCEDURE: CT ANGIO ABDOMEN PELVIS INDICATIONS: Concern for mesenteric ischemia. Bloating with diarrhea for 2 months. TECHNIQUE: After the administration of intravenous contrast, 2.5 mm sections acquired from the diaphragm to the iliac crests. 10 mm maximum intensity projection (MIP) coronal and sagittal reformats were then performed. For radiation dose reduction, the following was used: automated exposure control. COMPARISON: [facility], CT, CT ANGIO ABDOMEN PELVIS, 09/02/2022, 12:42. FINDINGS: Image quality: Diagnostic. Abdominal aorta: No aortic aneurysm or evidence of acute aortic syndrome. Mesenteric arteries: Patent without hemodynamically significant stenosis. Renal arteries: Patent without hemodynamically significant stenosis. Lower chest: Unremarkable. ABDOMEN: Liver: No solid mass. Gallbladder: No radiopaque gallstones or wall thickening. Biliary ducts: No biliary dilation. Pancreas: No ductal dilation. Sub 5 millimeter hypoattenuating lesion in the pancreatic body, stable from prior and probably a benign cystic lesion or volume averaging artifact. Spleen: Size is within normal limits. Adrenal Glands: No adrenal nodules. Kidneys and Ureters: No hydronephrosis. No solid mass. No complex renal cystic lesion which requires follow up. Stomach and Bowel: Normal colonic caliber, without significant wall thickening. Normal appendix. No significant diverticulosis. Peritoneum: No abnormal intraperitoneal fluid. No free air. Ventral Wall: No hernia. Abdominal Nodes: No retroperitoneal or mesenteric adenopathy by size criteria. Vessels: Aorta, as above. Normal IVC. PELVIS: Pelvic Organs: Unremarkable. Bladder: Unremarkable. Pelvic Nodes: No enlarged lymph nodes. Miscellaneous: No inguinal hernias are seen. Bones: No aggressive osseous abnormality. IMPRESSION: No significant atherosclerotic disease or findings to support chronic mesenteric ischemia. Dictated by: Herb Tomlinson M.D. on 07/23/2024 at 13:48 Approved by: Herb Tomlinson M.D. on 07/23/2024 at 13:51
[2024-07-23] MEDS: SODIUM CHLORIDE 0.9% 1,000 ML 1000 ML IV (13:19)
[2024-07-23] MEDS: ONDANSETRON 4 MG/2 ML INJ IV (13:19)
[2024-07-23] MEDS: ACETAMINOPHEN 325 MG TABLET 975 MG PO (13:41)
[2024-07-23 16:25] LABS: Adenovirus F 40/41 Not Detected (Not Detect); Astrovirus Not Detected (Not Detect); Campylobacter Not Detected (Not Detect); Clostridium difficile toxin AB Not Detected (Not Detect); Cryptosporidium Not Detected (Not Detect); Cyclospora cayetanensis Not Detected (Not Detect); Entamoeba histolytica Not Detected (Not Detect); Enteroaggregative E.coli Not Detected (Not Detect); Enteropathogenic E.coli Not Detected (Not Detect); Enterotoxigenic E.coli It/st Not Detected (Not Detect); Giardia lamblia Not Detected (Not Detect); Norovirus GI/GII Not Detected (Not Detect); Plesiomonsa shigelloides Not Detected (Not Detect); Rotavirus A Not Detected (Not Detect); Salmonella Not Detected (Not Detect); Sapovirus Not Detected (Not Detect); Shiga-like toxin-prod E.coli Not Detected (Not Detect); Shigella/Enteroinvasive E.coli Not Detected (Not Detect); Vibrio Not Detected (Not Detect); Vibrio cholerae Not Detected (Not Detect); Yersinia enterocolitica Not Detected (Not Detect)
== END 2024-07-23 16:56 | disposition home or self-care (01) ==
PROVIDERS: Emergency Provider Emergency Medicine; PCP Student in an Organized Health Care Education/Training Program
DX: U09.9 Post COVID-19 condition, unspecified (principal); R10.84 Generalized abdominal pain; R53.83 Other fatigue; R19.4 Change in bowel habit; R19.7 Diarrhea, unspecified; R14.0 Abdominal distension (gaseous); R07.9 Chest pain, unspecified
CPT/HCPCS: 74174; 80053; 81003; 83690; 85025; 87507; 93005; 93010; 96361; 96374; 99284; J2405; Q9967

== ENCOUNTER 2025-03-27 16:29 | Emergency (ER) | payer MEDICARE, MEDICAID, SELFPAY ==
[2025-03-27] VITALS (17 sets, daily range): BP systolic 160–195; BP diastolic 74–98; PULSE 66–78; RESP 8–31; TEMP 36.6; O2SAT 94–98; BMI 24.1
--- NOTE | 2025-03-27 19:59 | DI.CT.S_ITS ---
PROCEDURE: CT HEAD/BRAIN WO CON INDICATIONS: dizzy TECHNIQUE: Noncontrast 4.5 mm thick angled axial sections acquired from the foramen magnum to the vertex, with coronal and sagittal reformats. For radiation dose reduction, the following was used: automated exposure control, adjustment of mA and/or kV according to patient size. COMPARISON: [facility], CT, CT HEAD/BRAIN WO CON, 12/23/2023, 19:45. FINDINGS: Image quality: Diagnostic. CSF spaces: Basal cisterns are patent. No extra-axial fluid collections. The ventricles are symmetric in size and shape. Brain: No intracranial bleeds or mass effect. There is cerebral volume loss, with resultant ventricular and sulcal prominence. There are periventricular and deep white matter chronic small vessel ischemic changes. There is intracranial internal carotid artery atherosclerosis. Skull and face: Calvarium and visualized facial bones appear intact, without suspicious lesions. Sinuses: Visualized sinuses and mastoids are clear. IMPRESSION: No acute intracranial pathology. Dictated by: Moris Donaldson M.D. on 03/27/2025 at 20:50 Approved by: Moris Donaldson M.D. on 03/27/2025 at 20:50
--- NOTE | 2025-03-27 19:59 | DI.RAD.S_ITS ---
PROCEDURE: XR CHEST 1V INDICATIONS: chest pain TECHNIQUE: One view of the chest was acquired. COMPARISON: [facility], CR, XR CHEST 1V, 03/12/2025, 17:45. FINDINGS: Surgical changes and devices: None. Lungs and pleura: Lungs are clear. No pleural effusions or pneumothorax. Mediastinum: Mediastinal contours appear normal. Heart size is normal. Bones and chest wall: No suspicious bony lesions. Overlying soft tissues appear unremarkable. IMPRESSION: No acute cardiopulmonary pathology. Dictated by: Moris Donaldson M.D. on 03/27/2025 at 20:27 Approved by: Moris Donaldson M.D. on 03/27/2025 at 20:27
--- NOTE | 2025-03-27 20:00 | DI.CT.S_ITS ---
PROCEDURE: CT ANGIO HEAD AND NECK INDICATIONS: dizzy TECHNIQUE: After the administration of intravenous contrast, 1 mm thick sections acquired from the aortic arch through the [place] of [place]ipe. 3-dimensional ceoysjs-ajccixqgz-zjhoepstel (MIP) and/or volume rendering reformats were acquired of the central intracranial vasculature and neck separately. For radiation dose reduction, the following was used: automated exposure control, adjustment of mA and/or kV according to patient size. COMPARISON: None. FINDINGS: Image quality: Diagnostic. Cerebral CT Angiogram: Internal carotid arteries: No acute findings. Intracranial ICA are patent with no significant stenosis. No occlusion. No aneurysm. Anterior cerebral arteries: Unremarkable. No significant stenosis. No occlusion. No aneurysm. Middle cerebral arteries: Unremarkable. No significant stenosis. No occlusion. No aneurysm. Posterior cerebral arteries: Unremarkable. No significant stenosis. No occlusion. No aneurysm. Basilar artery: Unremarkable. No significant stenosis. No occlusion. No aneurysm. Vertebral arteries: Unremarkable as visualized. Dural venous sinuses: Unremarkable given phase of enhancement. Other: Arterial phase appearance of the brain parenchyma is unremarkable. Neck CT Angiogram: Internal carotid arteries: Unremarkable. No significant stenosis. No dissection or occlusion. Common carotid arteries: Unremarkable. No significant stenosis. No dissection or occlusion. External carotid arteries: Unremarkable. No occlusion. Vertebral arteries: Unremarkable. No significant stenosis. No dissection or occlusion. Aortic Arch and Mediastinum: Partially visualized aortic arch unremarkable without evidence of aneurysm. Origins of the great vessels unremarkable. Other: Arterial phase soft tissues of the neck and chest are unremarkable. IMPRESSION: 1. No significant intracranial arterial abnormality is seen. 2. No significant abnormality is seen within the arteries of the neck . Any quantitative measurements of stenosis were performed using NASCET criteria. Dictated by: Moris Donaldson M.D. on 03/27/2025 at 20:54 Approved by: Moris Donaldson M.D. on 03/27/2025 at 20:56
[2025-03-27 20:23] LABS: Add Manual Diff / Slide Review NO; Hematocrit 39.1 % (36-46); Hemoglobin 13.4 g/dL (12.0-16.0); Lymphocytes Absolute Auto 3800 /uL (1100-4500); Mean Corpuscular HGB Conc 34.2 % (30-36); Mean Corpuscular Hemoglobin 29.8 PG (26-34); Mean Corpuscular Volume 87.0 fL (80-100); Platelet Count 359 X10^3/uL (150-400)
--- NOTE | 2025-03-27 20:31 | EKG_ITS ---
[address] [address] Test Date: 2025-03-27 Pat Name: Liudmila Green Department: [facility] Room: Gender: Female [facility] Director: BRITTNEY : 1965 Requested By: Order Number: [id number] Reading MD: Kd Limon MD Measurements Intervals [place] Rate: 63 P: 58 RI: 178 QRS: 69 QRSD: 86 T: 60 QT: 446 QTc: 456 Interpretive Statements Normal sinus rhythm Electronically Signed On 03-28-2025 7:37:53 PDT by Kd Limon MD
[2025-03-27 20:35] LABS: Alanine Aminotransferase 20 IU/L (<35); Albumin 4.4 g/dL (3.5-5.0); Albumin Globulin Ratio 1.5 (1.0-2.8); Alkaline Phosphatase 66 U/L (38-126); Blood Urea Nitrogen 10 mg/dL (7-17); Calcium 9.0 mg/dL (8.4-10.2); Carbon Dioxide 27 mmol/L (22-32); Chloride 101 mmol/L (98-107); Creatine Kinase 24 U/L (30-135); Estimated Glomerular Filt Rate > 60 mL/min (>60); Globulin 3.0 g/dL (1.7-4.1); Glucose 88 mg/dL (70-99); HEMOLYSIS < 15 (0-50); Lipase 77 U/L (23-300); Potassium 4.1 mmol/L (3.4-5.1); Sodium 134 mmol/L (137-145); Total Protein 7.4 g/dL (6.3-8.2)
[2025-03-27 20:47] LABS: Troponin I < 0.012 ng/mL (0.01-0.034)
--- NOTE | 2025-03-27 21:02 | ED.DIZZY ---
HPI - Dizziness General Chief Complaint: Dizziness Stated Complaint: Vertigo this AM, worried about RSV Time Seen by Provider: 03/27/25 19:58 Source: patient Mode of arrival: Ambulatory History of Present Illness HPI Narrative: 60-year-old female with history of recurrent vertigo for a number of years, has had worse and more frequent episodes since COVID illness recent years, last week had upper respiratory illness symptoms that seemed to get better, now since this morning 8:00 a.m. having vertigo spinning sensation. No focal numbness or weakness to face arm or legs. No visual changes. Worse with truncal and head movements. Related Data Home Medications ?Medication ?Instructions ?Recorded ?Confirmed CRANBERRY EXTRACT (Cranberry) 405 mg PO PRN ##0 11/30/12 02/21/20 [PHYTOESTROGEN CREAM] BID ##0 11/30/12 Previous Rx's ?Medication ?Instructions ?Recorded pantoprazole 40 mg tablet,delayed 40 mg PO DAILY #20 tabs 02/21/20 release (Protonix) cephalexin 500 mg capsule 500 mg PO TID #15 caps 09/10/20 fluconazole 150 mg tablet 150 mg PO Q3D 2 doses #2 tabs 08/15/21 (Diflucan) phenazopyridine 100 mg tablet 100 mg PO TID PRN pain 6 doses #6 08/15/21 (Pyridium) tabs sucralfate 100 mg/mL oral 10 ml PO QACHS #400 mL 07/28/22 suspension (Carafate) famotidine 20 mg tablet (Pepcid) 20 mg PO BID #10 tabs 02/01/23 methylprednisolone 4 mg tablets in See Rx Instructions PO .COMPLEX 02/01/23 a dose pack (Medrol (Pedro)) #21 ea phenazopyridine 100 mg tablet 100 mg PO TID PRN pain 6 doses #6 02/10/23 (Pyridium) tabs meclizine 25 mg tablet 25 mg PO TID 7 days #21 tabs 03/28/25 Allergies Allergy/AdvReac Type Severity Reaction Status Date / Time cocaine Allergy Anaphylaxis Verified 03/12/25 17:40 duloxetine (From Cymbalta) AdvReac Severe Immediate Verified 03/12/25 17:40 intractable Vomiting loratadine (From Claritin) AdvReac hair loss Verified 03/12/25 17:40 morphine AdvReac ITCHING Verified 03/12/25 17:40 Patient History Medical History (Updated 03/28/25 @ 00:16 by Garcia Perez MD) Long COVID Alcohol use disorder Acid reflux Recurrent UTI Surgical History H/O: hysterectomy alcohol intake frequency: 0-2 drinks per day Exam Narrative Exam Narrative: GENERAL: Well-developed patient, in mild distress. HEAD: Atraumatic. Normocephalic. EYES: Pupils equal round and reactive. Extraocular motions intact. No scleral icterus. No injection or drainage. ENT: Nose without bleeding, purulent drainage. Throat without erythema, tonsillar hypertrophy or exudate. Airway patent. NECK: Trachea midline. Non tender CARDIOVASCULAR: Regular rate and rhythm without murmurs, gallops, or rubs. RESPIRATORY: Clear to auscultation. Breath sounds equal bilaterally. No wheezes, rales, or rhonchi. GASTROINTESTINAL: Abdomen soft, non-tender, nondistended. EXTREMITIES: No edema or joint tenderness. BACK: Nontender without deformity or crepitance. No flank tenderness. NEURO: AOx3. Cranial nerves normal as tested. Motor 5/5 bilateral upper extremities. Motor 5/5 bilateral lower extremities. [id number] testing normal bilateral upper extremities. Sensation intact to light touch face arm or leg. SKIN: No rash or erythema of visible areas Initial Vital Signs Initial Vital Signs: Vital Signs Temperature 98 F 03/27/25 16:39 Pulse Rate 78 03/27/25 16:39 Respiratory Rate 16 03/27/25 16:39 Blood Pressure 183/94 H 03/27/25 16:39 Pulse Oximetry 98 03/27/25 16:39 Oxygen Delivery Method Room Air 03/27/25 16:39 Course Orders Ordered: ED Orders 03/27/25 19:59 CT head/brain wo con Stat XR chest 1V Stat EKG-12 Lead Stat 03/27/25 20:00 CT angio head and neck Stat 03/27/25 20:15 Complete Blood Count AUTO DIFF Stat Comprehensive Metabolic Panel Stat Lipase Stat Troponin & CK Cardiac Panel Stat 03/27/25 22:45 Troponin I Stat Discontinued Medications Meclizine HCl (Meclizine Hcl 12.5 Mg Tablet) 50 mg PO NOW ONE Stop: 03/27/25 21:04 Last Admin: 03/27/25 21:21 Dose: 50 mg Documented By: [place] Vital Signs Vital signs: Vital Signs - 8 hr 03/27/25 20:30 03/27/25 21:00 03/27/25 21:04 Pulse Rate 68 66 67 Respiratory Rate 31 H 25 H 12 Blood Pressure Pulse Oximetry 98 98 97 03/27/25 21:04 03/27/25 22:41 03/27/25 22:43 Pulse Rate 71 Respiratory Rate Blood Pressure 160/82 H 180/94 H Pulse Oximetry 96 03/27/25 22:43 03/27/25 23:00 03/27/25 23:00 Pulse Rate 71 70 Respiratory Rate 14 11 L Blood Pressure 186/97 H Pulse Oximetry 97 96 03/27/25 23:30 03/27/25 23:31 03/27/25 23:31 Pulse Rate 70 71 Respiratory Rate 16 23 Blood Pressure 195/97 H Pulse Oximetry 95 94 03/28/25 00:00 03/28/25 00:01 03/28/25 00:01 Pulse Rate 70 70 Respiratory Rate 19 20 Blood Pressure 204/91 H Pulse Oximetry 97 96 03/28/25 00:06 03/28/25 00:06 03/28/25 00:30 Pulse Rate 68 66 Respiratory Rate 16 20 Blood Pressure 184/86 H Pulse Oximetry 98 97 03/28/25 00:31 03/28/25 00:31 03/28/25 01:00 Pulse Rate 68 64 Respiratory Rate 18 15 Blood Pressure 178/90 H Pulse Oximetry 97 96 03/28/25 01:01 03/28/25 01:01 Pulse Rate 64 Respiratory Rate 20 Blood Pressure 153/82 H Pulse Oximetry 96 MDM - Dizziness Lab Data Attestation: I reviewed the patient's lab results. Lab results narrative: White blood cell count 8600, hemoglobin 13.4, platelets adequate. Glucose 88. Normal renal function, serum CO2, potassium. Sodium 132 slight decreased. Liver functions and lipase normal. Troponin negative/unmeasurable. 03/27/25 20:15 03/27/25 20:15 Labs: Lab Results 03/27/25 03/27/25 Range/Units 20:15 22:45 WBC 8.6 (4.5-11.0) X10^3/uL RBC 4.49 (4.0-5.2) X10^6/uL Hgb 13.4 (12.0-16.0) g/dL Hct 39.1 (36-46) % MCV 87.0 (80-100) fL MCH 29.8 (26-34) PG MCHC 34.2 (30-36) % RDW 12.6 (11.6-14.8) % Plt Count 359 (150-400) X10^3/uL Neut % (Auto) 47.8 L (50-75) % Lymph % (Auto) 43.9 H (25-40) % [place] % (Auto) 4.8 (3-14) % Eos % (Auto) 2.6 (2-4) % Baso % (Auto) 0.9 (0-2) % Neut # (Auto) 4100 (3322-0139) /uL Lymph # (Auto) 3800 (4441-8729) /uL [place] # (Auto) 400 (0-900) /uL Eos # (Auto) 200 (0-450) /uL Baso # (Auto) 100 (0-100) /uL Sodium 134 L (137-145) mmol/L Potassium 4.1 (3.4-5.1) mmol/L Chloride 101 (98-107) mmol/L Carbon Dioxide 27 (22-32) mmol/L BUN 10 (7-17) mg/dL Creatinine 0.62 (0.52-1.04) mg/dL Estimated GFR > 60 (>60) mL/min BUN/Creatinine Ratio 16.1 (6-22) Glucose 88 (70-99) mg/dL Calcium 9.0 (8.4-10.2) mg/dL Total Bilirubin 0.4 (0.2-1.3) mg/dL AST 30 (14-36) IU/L ALT 20 (<35) IU/L Alkaline Phosphatase 66 (38-126) U/L Total Creatine Kinase 24 L (30-135) U/L Troponin I < 0.012 < 0.012 (0.01-0.034) ng/mL Total Protein 7.4 (6.3-8.2) g/dL Albumin 4.4 (3.5-5.0) g/dL Globulin 3.0 (1.7-4.1) g/dL Albumin/Globulin Ratio 1.5 (1.0-2.8) Lipase 77 (23-300) U/L Imaging Data CT scan - head: Radiologist's Impression: Liudmila Green??60??F??1965 ? Allergy/Adv: cocaine, duloxetine, loratadine, morphine [address] [address] [address] Scan Report Signed Patient: Liudmila Green MR#: [id number] : 1965 Acct:[id number] Age/Sex: 60 / F Date of Service: 03/27/25 Loc: ED Accession Number: [id number] Procedure: CT head/brain wo con Ordering Provider: Garcia Perez MD PROCEDURE: CT HEAD/BRAIN WO CON INDICATIONS: dizzy TECHNIQUE: Noncontrast 4.5 mm thick angled axial sections acquired from the foramen magnum to the vertex, with coronal and sagittal reformats. For radiation dose reduction, the following was used: automated exposure control, adjustment of mA and/or kV according to patient size. COMPARISON: [facility], CT, CT HEAD/BRAIN WO CON, 12/23/2023, 19:45. FINDINGS: Image quality: Diagnostic. CSF spaces: Basal cisterns are patent. No extra-axial fluid collections. The ventricles are symmetric in size and shape. Brain: No intracranial bleeds or mass effect. There is cerebral volume loss, with resultant ventricular and sulcal prominence. There are periventricular and deep white matter chronic small vessel ischemic changes. There is intracranial internal carotid artery atherosclerosis. Skull and face: Calvarium and visualized facial bones appear intact, without suspicious lesions. Sinuses: Visualized sinuses and mastoids are clear. IMPRESSION: No acute intracranial pathology. Dictated by: Moris Donaldson M.D. on 03/27/2025 at 20:50 Approved by: Moris Donaldson M.D. on 03/27/2025 at 20:50 CTA - brain/neck: Radiologist's Impression: Liudmila Green??60??F??1965 ? Allergy/Adv: cocaine, duloxetine, loratadine, morphine [address] [address] [address] Scan Report Signed Patient: Liudmila Green MR#: [id number] : 1965 Acct:[id number] Age/Sex: 60 / F Date of Service: 03/27/25 Loc: ED Accession Number: [id number] Procedure: CT angio head and neck Ordering Provider: Garcia Perez MD PROCEDURE: CT ANGIO HEAD AND NECK INDICATIONS: dizzy TECHNIQUE: After the administration of intravenous contrast, 1 mm thick sections acquired from the aortic arch through the [place] of Felipe. 3-dimensional dhzynsk-kffwezvle-kwoevwflgy (MIP) and/or volume rendering reformats were acquired of the central intracranial vasculature and neck separately. For radiation dose reduction, the following was used: automated exposure control, adjustment of mA and/or kV according to patient size. COMPARISON: None. FINDINGS: Image quality: Diagnostic. Cerebral CT Angiogram: Internal carotid arteries: No acute findings. Intracranial ICA are patent with no significant stenosis. No occlusion. No aneurysm. Anterior cerebral arteries: Unremarkable. No significant stenosis. No occlusion. No aneurysm. Middle cerebral arteries: Unremarkable. No significant stenosis. No occlusion. No aneurysm. Posterior cerebral arteries: Unremarkable. No significant stenosis. No occlusion. No aneurysm. Basilar artery: Unremarkable. No significant stenosis. No occlusion. No aneurysm. Vertebral arteries: Unremarkable as visualized. Dural venous sinuses: Unremarkable given phase of enhancement. Other: Arterial phase appearance of the brain parenchyma is unremarkable. Neck CT Angiogram: Internal carotid arteries: Unremarkable. No significant stenosis. No dissection or occlusion. Common carotid arteries: Unremarkable. No significant stenosis. No dissection or occlusion. External carotid arteries: Unremarkable. No occlusion. Vertebral arteries: Unremarkable. No significant stenosis. No dissection or occlusion. Aortic Arch and Mediastinum: Partially visualized aortic arch unremarkable without evidence of aneurysm. Origins of the great vessels unremarkable. Other: Arterial phase soft tissues of the neck and chest are unremarkable. IMPRESSION: 1. No significant intracranial arterial abnormality is seen. 2. No significant abnormality is seen within the arteries of the neck . Any quantitative measurements of stenosis were performed using NASCET criteria. Dictated by: Moris Donaldson M.D. on 03/27/2025 at 20:54 Approved by: Moris Donaldson M.D. on 03/27/2025 at 20:56 Chest x-ray: Radiologist's Impression: [address] [address] XRay Report Signed Patient: Liudmila Green MR#: [id number] : 1965 Acct:[id number] Age/Sex: 60 / F Date of Service: 03/27/25 Loc: ED Accession Number: [id number] Procedure: XR chest 1V Ordering Provider: Garcia Perez MD PROCEDURE: XR CHEST 1V INDICATIONS: chest pain TECHNIQUE: One view of the chest was acquired. COMPARISON: [facility], CR, XR CHEST 1V, 03/12/2025, 17:45. FINDINGS: Surgical changes and devices: None. Lungs and pleura: Lungs are clear. No pleural effusions or pneumothorax. Mediastinum: Mediastinal contours appear normal. Heart size is normal. Bones and chest wall: No suspicious bony lesions. Overlying soft tissues appear unremarkable. IMPRESSION: No acute cardiopulmonary pathology. Dictated by: Moris Donaldson M.D. on 03/27/2025 at 20:27 Approved by: Moris Donaldson M.D. on 03/27/2025 at 20:27 ECG Data Attestation: I personally reviewed and interpreted this ECG as follows: Interpretation: 2030, normal sinus rhythm with rate of 63, no obvious ST segment elevation or depression changes. [place] 178, QRS 86, QTC 456. MDM Narrative Medical decision making narrative: 60-year-old female with history of recurrent vertigo, last week had chest cold symptoms that resolved, this morning having vertigo spinning sensation typical to previous events. She has not taken any medications for this. Afebrile, sirs screen negative. EKG normal sinus rhythm with no acute changes. Chest x-ray no acute changes, see radiology report. CT head noncontrast, no acute changes. See radiology report. CT angiogram head and neck vessels, no narrowing or thrombosis changes. See radiology report. Lab data: White blood cell count 8600, hemoglobin 13.4, platelets adequate. Glucose 88. Normal renal function, serum CO2, potassium. Sodium 132 slight decreased. Liver functions and lipase normal. Troponin negative/unmeasurable. Oral meclizine dose given. We will repeat interval troponin. Repeat troponin negative. Symptoms improved. Trial of ambulation and oral fluid challenge. Tolerated well. Discharged home with family. Follow up with PCP early this next week. Return precautions discussed. Consider [id number] meclizine, though I did send a prescription to use if patient interested. Patient expressed understanding. Did not have any further questions. Discharged home with family. Discharge Plan Departure Patient Disposition: Home Clinical Impression: Dizziness, Vertigo Activity Restrictions/Additional Instructions: Recent resolved upper respiratory infection symptoms. History of vertigo in the past. Recurrence of spinning sensation dizziness since this morning. CT head showed no stroke or mass or acute changes. CT angiogram head and neck vessels showed no significant vascular narrowing, no thrombosis. Trial of oral meclizine. Your symptoms improved. You were able to ambulate and drink fluids. Likely a you might have inflammation of your vestibular system from recent viral illness, seems much less likely stroke. Further meclizine prescription sent to your pharmacy. Recheck advised next few days with your regular doctor. Return to this/nearest emergency department for any change worsening symptoms or any concerns prior. Prescriptions: New meclizine 25 mg tablet 25 mg PO TID 7 Days Qty: 21 0RF No Action CRANBERRY EXTRACT (Cranberry) 405 mg PO PRN Qty: 0 [PHYTOESTROGEN CREAM] BID Qty: 0 cephalexin 500 mg capsule 500 mg PO TID Qty: 15 0RF phenazopyridine [Pyridium] 100 mg tablet 100 mg PO TID PRN (Reason: pain) Qty: 6 0RF pantoprazole [Protonix] 40 mg tablet,delayed release (DR/EC) 40 mg PO DAILY Qty: 20 0RF phenazopyridine [Pyridium] 100 mg tablet 100 mg PO TID PRN (Reason: pain) Qty: 6 0RF fluconazole [Diflucan] 150 mg tablet 150 mg PO Q3D Qty: 2 0RF sucralfate [Carafate] 100 mg/mL suspension 10 ml PO QACHS Qty: 400 2RF methylprednisolone [Medrol (Pedro)] 4 mg tablets,dose pack See Rx Instructions .ROUTE .COMPLEX Qty: 21 0RF Rx Instructions: orally per package directions famotidine [Pepcid] 20 mg tablet 20 mg PO BID Qty: 10 0RF Referrals: Conor Sy [Primary Care Provider, Medical] Stand Alone Forms: Patient Portal/API
[2025-03-27] MEDS: MECLIZINE HCL 12.5 MG TABLET 50 MG PO (21:21)
[2025-03-27 23:14] LABS: Troponin I < 0.012 ng/mL (0.01-0.034)
[2025-03-28] VITALS (7 sets, daily range): BP systolic 153–204; BP diastolic 82–91; PULSE 64–70; RESP 15–20; O2SAT 96–98
== END 2025-03-28 01:06 | disposition home or self-care (01) ==
PROVIDERS: Emergency Provider Emergency Medicine; PCP Student in an Organized Health Care Education/Training Program
DX: R42 Dizziness and giddiness (principal); R07.9 Chest pain, unspecified
CPT/HCPCS: 36415; 70450; 70496; 70498; 71045; 80053; 82550; 83690; 84484; 85025; 93005; 99284; Q9967